=== PATIENT | female | born 1945 | race Caucasian/White ===

== ENCOUNTER 2019-06-29 10:11 | Day surgery (SDC) | payer MEDICARE, OTHER ==
[~2019-06-29 10:11] MED LIST: Cefuroxime 10 MG/ML SYRINGE EYERT SCH; Lidocaine 1% PF 2 ML SDV INJECT SCH; Pilocarpine 4% Ophth Soln 15 ML Bot EYERT SCH
[2019-06-29] MEDS: Polymyxin B/Trimethoprim 10 ML Bottle EYERT SCH ×3 (10:48→12:33)
[2019-06-29] MEDS: Brimonidine 0.2% Ophth Soln 15 ML Bottle EYERT SCH ×3 (10:57→12:33)
[2019-06-29] MEDS: Phenylephrine 2.5% Ophth Soln 2 ML Bot EYERT SCH ×5 (11:02→12:13)
[2019-06-29] MEDS: Tropicamide 1% Ophth Soln 15 ML Bottle EYERT SCH ×4 (11:08→11:59)
--- NOTE | 2019-06-29 11:37 | PCM.PREANE ---
Preanesthetic Assessment - Anesthesia/Transfusion/Family Hx Anesthesia History: Prior Anesthesia Without Reaction Family History of Anesthesia Reaction: No Transfusion History: No Prior Transfusion(s) - Review of Systems General: No Symptoms Pulmonary: No Symptoms Cardiovascular: No Symptoms Gastrointestinal: No Symptoms Neurological: Seizure (last one in February) Other: Reports: Anxiety - Physical Assessment NPO Status Date: 06/28/19 NPO Status Time: 23:45 Vital Signs: Last Vital Signs Temp 36.5 C 06/29/19 10:40 Pulse 84 06/29/19 10:40 Resp 16 06/29/19 10:40 BP 132/87 06/29/19 10:40 Pulse Ox 92 L 06/29/19 10:40 Height: 1.65 m Weight: 51.256 kg ASA Class: 2 Mental Status: Alert & Oriented x3 Airway Class: Mallampati = 1 Dentition: Reports: Caries Thyro-Mental Finger Breadths: 3 Mouth Opening Finger Breadths: 3 ROM/Head Extension: Limited/Partial (pinched nerve) Lungs: Clear to Auscultation, Normal Respiratory Effort Cardiovascular: Regular Rate, Regular Rhythm - Allergies Allergies/Adverse Reactions: Allergies Allergy/AdvReac Type Severity Reaction Status Date / Time No Known Allergies Allergy Verified 06/28/19 14:19 - Blood Blood Available: No Product(s) Available: None - Anesthesia Plan Pre-Op Medication Ordered: None - Acknowledgements Anesthesia Type Planned: MAC Pt an Appropriate Candidate for the Planned Anesthesia: Yes Alternatives and Risks of Anesthesia Discussed w Pt/Guardian: Yes Pt/Guardian Understands and Agrees with Anesthesia Plan: Yes PreAnesthesia Questionnaire - SUBSTANCE USE Smoking Status *Q: Former Smoker Tobacco Use Within Last Twelve Months: Cigarettes Second Hand Smoke Exposure: No Days Per Week of Alcohol Use: 1 Number of Drinks Per Day: 2 Total Drinks Per Week: 2 Recreational Drug Use History: No - HOME MEDS Home Medications: Home Meds Tolterodine Tartrate [Detrol LA] 4 mg PO DAILY 06/28/19 [History] Vitamin B Complex 1 tab PO DAILY 06/28/19 [History] busPIRone [Buspar] 5 mg PO BID 06/28/19 [History] levETIRAcetam [Keppra] 500 mg PO BID 06/28/19 [History] - CURRENT (IN HOUSE) MEDS Current Meds: Current Medications Brimonidine Tartrate (Brimonidine Tartrate 0.2% Ophth Soln) 0 ml EYERT ASDIRECTED GUEVARA Stop: 06/29/19 18:00 Last Admin: 06/29/19 10:57 Dose: 1 drop Cefuroxime Sodium (Zinacef) 0 mg EYERT ASDIRECTED GUEVARA Stop: 06/29/19 18:00 Lidocaine HCl (Xylocaine-Mpf 1%) 1 ml INJECT ASDIRECTED GUEVARA Stop: 06/29/19 18:00 Phenylephrine HCl (Roque-Synephrine 2.5% Ophth Soln) 0 ml EYERT ASDIRECTED GUEVARA Stop: 06/29/19 18:00 Last Admin: 06/29/19 11:27 Dose: 1 drop Pilocarpine HCl (Pilocar 4% Ophth Soln) 0 ml EYERT ASDIRECTED GUEVARA Stop: 06/29/19 18:00 Polymyxin/Trimethoprim Sulfate (Polytrim Ophth Soln) 0 ml EYERT ASDIRECTED GUEVARA Stop: 06/29/19 18:00 Last Admin: 06/29/19 10:48 Dose: 1 drop Tetracaine HCl (Tetracaine 0.5% Steri-Unit Briana) 0 ml EYERT ASDIRECTED GUEVARA Stop: 06/29/19 18:00 Tropicamide (Mydriacyl 1% Oph Soln) 0 ml EYERT ASDIRECTED GUEVARA Stop: 06/29/19 18:00 Last Admin: 06/29/19 11:22 Dose: 1 drop
[2019-06-29] MEDS: Tetracaine HCl/PF 0.5% 4 ML Bottle EYERT SCH ×2 (12:08→12:19)
--- NOTE | 2019-06-29 12:34 | PCM48HPAN ---
Post Anesthesia Note - EVALUATION WITHIN 48HRS OF ANESTHETIC Vital Signs in Normal Range: Yes Patient Participated in Evaluation: Yes Respiratory Function Stable: Yes Airway Patent: Yes Cardiovascular Function Stable: Yes Hydration Status Stable: Yes Pain Control Satisfactory: Yes Nausea and Vomiting Control Satisfactory: Yes Mental Status Recovered: Yes Vital Signs: Last Vital Signs Temp 36.5 C 06/29/19 10:40 Pulse 84 06/29/19 10:40 Resp 16 06/29/19 10:40 BP 132/87 06/29/19 10:40 Pulse Ox 92 L 06/29/19 10:40
== END 2019-06-29 12:52 | disposition home or self-care (01) ==
LOC: JD.SDS 10:11
PROVIDERS: ATTEND Ophthalmology
DX: H25.813 Combined forms of age-related cataract, bilateral (principal); H16.223 Keratoconjunctivitis sicca, not specified as Sjogren's, bilateral; H02.834 Dermatochalasis of left upper eyelid; H02.831 Dermatochalasis of right upper eyelid; H16.103 Unspecified superficial keratitis, bilateral; I10 Essential (primary) hypertension; C50.919 Malignant neoplasm of unspecified site of unspecified female breast; F41.9 Anxiety disorder, unspecified; Z87.891 Personal history of nicotine dependence; Z79.899 Other long term (current) drug therapy
CPT/HCPCS: 66984; J0697; J2001; C1780

== ENCOUNTER 2019-07-25 08:31 | Day surgery (SDC) | payer MEDICARE, OTHER ==
[~2019-07-25 08:31] MED LIST changes: +Cefuroxime 10 MG/ML SYRINGE EYELF SCH; -Cefuroxime 10 MG/ML SYRINGE EYERT SCH; +Pilocarpine 4% Ophth Soln 15 ML Bot EYELF SCH; -Pilocarpine 4% Ophth Soln 15 ML Bot EYERT SCH
[2019-07-25] MEDS: Polymyxin B/Trimethoprim 10 ML Bottle EYELF SCH ×3 (08:50→10:38)
[2019-07-25] MEDS: Brimonidine 0.2% Ophth Soln 5 ML Bottle EYELF SCH ×3 (08:55→10:38)
[2019-07-25] MEDS: Phenylephrine 2.5% Ophth Soln 2 ML Bot EYELF SCH ×5 (09:00→10:20)
[2019-07-25] MEDS: Tropicamide 1% Ophth Soln 15 ML Bottle EYELF SCH ×4 (09:05→10:04)
--- NOTE | 2019-07-25 09:39 | PCM.PREANE ---
Preanesthetic Assessment - Anesthesia/Transfusion/Family Hx Anesthesia History: Prior Anesthesia Without Reaction Family History of Anesthesia Reaction: No Transfusion History: No Prior Transfusion(s) - Review of Systems General: Weakness, Fatigue Pulmonary: Cough (Dry, Occasional. 0.5 ppd smoker. ) Cardiovascular: Lightheadedness (When standing to quickly), Other (Keeps active , does her yard work independently. ) Gastrointestinal: No Symptoms Neurological: Seizure (Takes her medication daily. Last Seizure a few months ago. Hospitalized in [place]. She believes they increased her seizure medication. ) Other: Reports: Neck Pain ("pinched nerve"), Anxiety - Physical Assessment NPO Status Date: 07/24/19 NPO Status Time: 23:45 Vital Signs: Last Vital Signs Temp 36.9 C 07/25/19 08:45 Pulse 85 07/25/19 08:45 Resp 20 07/25/19 08:45 BP 157/103 H 07/25/19 08:45 Pulse Ox 97 07/25/19 08:45 Height: 1.65 m Weight: 51.256 kg ASA Class: 3 Mental Status: Alert & Oriented x3 Dentition: Reports: Caries Thyro-Mental Finger Breadths: 3 Mouth Opening Finger Breadths: 3 ROM/Head Extension: Limited/Partial (Hurts when she fully extends her neck.) Lungs: Clear to Auscultation, Normal Respiratory Effort Cardiovascular: Regular Rate, Regular Rhythm - Allergies Allergies/Adverse Reactions: Allergies Allergy/AdvReac Type Severity Reaction Status Date / Time No Known Allergies Allergy Verified 07/24/19 08:04 - Acknowledgements Anesthesia Type Planned: MAC Pt an Appropriate Candidate for the Planned Anesthesia: Yes Alternatives and Risks of Anesthesia Discussed w Pt/Guardian: Yes Pt/Guardian Understands and Agrees with Anesthesia Plan: Yes PreAnesthesia Questionnaire - HOME MEDS Home Medications: Home Meds Tolterodine Tartrate [Detrol LA] 4 mg PO DAILY 06/28/19 [History] Vitamin B Complex 1 tab PO DAILY 06/28/19 [History] busPIRone [Buspar] 10 mg PO BID 06/28/19 [History] levETIRAcetam [Keppra] 500 mg PO BID 06/28/19 [History] - CURRENT (IN HOUSE) MEDS Current Meds: Current Medications Brimonidine Tartrate (Alphagan 0.2% Ophth Soln) 0 ml EYELF ASDIRECTED GUEVARA Stop: 07/25/19 18:00 Last Admin: 07/25/19 09:35 Dose: 1 drop Cefuroxime Sodium (Zinacef) 0 mg EYELF ASDIRECTED GUEVARA Stop: 07/25/19 18:00 Lidocaine HCl (Xylocaine-Mpf 1%) 0 ml INJECT ASDIRECTED GUEVARA Stop: 07/25/19 18:00 Phenylephrine HCl (Roque-Synephrine 2.5% Ophth Soln) 0 ml EYELF ASDIRECTED GUEVARA Stop: 07/25/19 18:00 Last Admin: 07/25/19 09:20 Dose: 1 drop Pilocarpine HCl (Pilocar 4% Ophth Soln) 0 ml EYELF ASDIRECTED GUEVARA Stop: 07/25/19 18:00 Polymyxin/Trimethoprim Sulfate (Polytrim Ophth Soln) 0 ml EYELF ASDIRECTED GUEVARA Stop: 07/25/19 18:00 Last Admin: 07/25/19 09:30 Dose: 1 drop Tetracaine HCl (Tetracaine 0.5% Steri-Unit Briana) 0 ml EYELF ASDIRECTED GUEVARA Stop: 07/25/19 18:00 Tropicamide (Mydriacyl 1% Ophth Soln) 0 ml EYELF ASDIRECTED GUEVARA Stop: 07/25/19 18:00 Last Admin: 07/25/19 09:25 Dose: 1 drop
[2019-07-25] MEDS: Tetracaine HCl/PF 0.5% 4 ML Bottle EYELF SCH ×4 (10:09→10:30)
--- NOTE | 2019-07-25 10:42 | PCM48HPAN ---
Post Anesthesia Note - EVALUATION WITHIN 48HRS OF ANESTHETIC Vital Signs in Normal Range: Yes Patient Participated in Evaluation: Yes Respiratory Function Stable: Yes Airway Patent: Yes Cardiovascular Function Stable: Yes Hydration Status Stable: Yes Pain Control Satisfactory: Yes Nausea and Vomiting Control Satisfactory: Yes Mental Status Recovered: Yes Vital Signs: Last Vital Signs Temp 36.9 C 07/25/19 08:45 Pulse 85 07/25/19 08:45 Resp 20 07/25/19 08:45 BP 157/103 H 07/25/19 08:45 Pulse Ox 97 07/25/19 08:45
--- NOTE | 2019-07-25 10:43 | PCM.PREANE ---
Preanesthetic Assessment - Anesthesia/Transfusion/Family Hx Anesthesia History: Prior Anesthesia Without Reaction Family History of Anesthesia Reaction: No Transfusion History: No Prior Transfusion(s) - Review of Systems General: Weakness, Fatigue Pulmonary: Cough (Dry and Occasional, Smoker 0.5 ppd.) Cardiovascular: Lightheadedness (When she stands up to quickly.), Other ( hypertensio) Gastrointestinal: No Symptoms Neurological: Seizure (Takes her seizure medication daily. Did have a seizure in April, was hospitalized in [place]. Increased her seizure meidcation. ) Other: Reports: Anxiety - Physical Assessment NPO Status Date: 07/24/19 NPO Status Time: 23:45 Vital Signs: Last Vital Signs Temp 36.9 C 07/25/19 08:45 Pulse 85 07/25/19 08:45 Resp 20 07/25/19 08:45 BP 157/103 H 07/25/19 08:45 Pulse Ox 97 07/25/19 08:45 Height: 1.65 m Weight: 51.256 kg ASA Class: 3 Mental Status: Alert & Oriented x3 Airway Class: Mallampati = 2 Thyro-Mental Finger Breadths: 3 Mouth Opening Finger Breadths: 3 ROM/Head Extension: Full Lungs: Clear to Auscultation, Normal Respiratory Effort Cardiovascular: Regular Rate, Regular Rhythm - Allergies Allergies/Adverse Reactions: Allergies Allergy/AdvReac Type Severity Reaction Status Date / Time No Known Allergies Allergy Verified 07/24/19 08:04 - Acknowledgements Anesthesia Type Planned: MAC Pt an Appropriate Candidate for the Planned Anesthesia: Yes Alternatives and Risks of Anesthesia Discussed w Pt/Guardian: Yes Pt/Guardian Understands and Agrees with Anesthesia Plan: Yes PreAnesthesia Questionnaire - HOME MEDS Home Medications: Home Meds Tolterodine Tartrate [Detrol LA] 4 mg PO DAILY 06/28/19 [History] Vitamin B Complex 1 tab PO DAILY 06/28/19 [History] busPIRone [Buspar] 10 mg PO BID 06/28/19 [History] levETIRAcetam [Keppra] 500 mg PO BID 06/28/19 [History] - CURRENT (IN HOUSE) MEDS Current Meds: Current Medications Brimonidine Tartrate (Alphagan 0.2% Ophth Soln) 0 ml EYELF ASDIRECTED GUEVARA Stop: 07/25/19 18:00 Last Admin: 07/25/19 08:55 Dose: 1 drop Cefuroxime Sodium (Zinacef) 0 mg EYELF ASDIRECTED GUEVARA Stop: 07/25/19 18:00 Lidocaine HCl (Xylocaine-Mpf 1%) 0 ml INJECT ASDIRECTED GUEVARA Stop: 07/25/19 18:00 Phenylephrine HCl (Roque-Synephrine 2.5% Ophth Soln) 0 ml EYELF ASDIRECTED GUEVARA Stop: 07/25/19 18:00 Last Admin: 07/25/19 09:20 Dose: 1 drop Pilocarpine HCl (Pilocar 4% Ophth Soln) 0 ml EYELF ASDIRECTED GUEVARA Stop: 07/25/19 18:00 Polymyxin/Trimethoprim Sulfate (Polytrim Ophth Soln) 0 ml EYELF ASDIRECTED GUEVARA Stop: 07/25/19 18:00 Last Admin: 07/25/19 09:30 Dose: 1 drop Tetracaine HCl (Tetracaine 0.5% Steri-Unit Briana) 0 ml EYELF ASDIRECTED GUEVARA Stop: 07/25/19 18:00 Tropicamide (Mydriacyl 1% Ophth Soln) 0 ml EYELF ASDIRECTED GUEVARA Stop: 07/25/19 18:00 Last Admin: 07/25/19 09:25 Dose: 1 drop
== END 2019-07-25 10:54 | disposition home or self-care (01) ==
LOC: JD.SDS 08:31
PROVIDERS: ATTEND Ophthalmology
DX: H25.812 Combined forms of age-related cataract, left eye (principal); H40.003 Preglaucoma, unspecified, bilateral; H02.834 Dermatochalasis of left upper eyelid; H02.831 Dermatochalasis of right upper eyelid; H52.31 Anisometropia; F41.9 Anxiety disorder, unspecified; I10 Essential (primary) hypertension; Z87.891 Personal history of nicotine dependence; Z96.1 Presence of intraocular lens; Z79.899 Other long term (current) drug therapy
CPT/HCPCS: 66984; C1780; J0697; J2001

== ENCOUNTER 2020-07-03 18:05 | Inpatient (IN) | payer MEDICARE, OTHER ==
[2020-07-03] MEDS ORDERED: Sodium Chloride 0.9% 10 ML Syringe FLUSH PRN (18:49)
--- NOTE | 2020-07-03 20:18 | EDM.PDOC ---
ED HPI GENERAL MEDICAL PROBLEM - General Chief Complaint: Behavioral/Psych Stated Complaint: [facility] Time Seen by Provider: 07/03/20 18:14 Source of Information: Reports: Patient History Limitations: Reports: No Limitations - History of Present Illness INITIAL COMMENTS - FREE TEXT/NARRATIVE: Patient is a 74-year-old female brought in by [facility] accompanied by for medical evaluation at the request of her son. He called law enforcement to do a welfare check on her today because she has not been taking care of herself. When she arrived to the ER, she smelled of feces and urine. She is quite cachectic. States she has not eaten since this morning. She is alert and oriented to person place and time. She does report frequent falls. She has some superficial abrasions on her knees which she states are because she chooses to crawl around her house as opposed to walking because that way she does not fall. She denies any fever, chills, cough, urinary symptoms. When asked who takes care of her she says "I have no". States that she thinks her brother called law enforcement for the welfare check, however had been informed that was her son who lives in [place]. Per charge nurse, her son reports that she had an episode similar to this many years back. She did have a swing bed stay during which she did well and was able to go home. He is concerned that she is not able to take care of herself at home. Headache Pain Score (Numeric/FACES): 8 - Related Data Allergies Allergy/AdvReac Type Severity Reaction Status Date / Time No Known Allergies Allergy Verified 07/04/20 00:43 Home Meds: Home Meds Tolterodine Tartrate [Detrol LA] 4 mg PO DAILY 06/28/19 [History] Vitamin B Complex 1 tab PO DAILY 06/28/19 [History] busPIRone [Buspar] 10 mg PO BID 06/28/19 [History] levETIRAcetam [Keppra] 500 mg PO BID 06/28/19 [History] Magnesium Oxide [Magnesium] 400 mg PO DAILY #5 tablet 07/04/20 [Rx] Potassium Chloride 20 meq PO DAILY #3 tablet.er 07/04/20 [Rx] Past Medical History [employer] History: Reports: Neurological History: Reports: Seizure - Past Surgical History Female Surgical History: Reports: Mastectomy, Other (See Below) Other Female Surgeries/Procedures: double mastectomy Social & Family History - Family History Family Medical History: Noncontributory - Tobacco Use Smoking Status *Q: Current Every Day Smoker Years of Tobacco use: 50 Packs/Tins Daily: 0.2 - Caffeine Use Caffeine Use: Reports: Coffee - Recreational Drug Use Recreational Drug Use: No ED ROS GENERAL - Review of Systems Review Of Systems: See Below Constitutional: Reports: Weakness. Denies: Fever, Chills HEENT: Reports: No Symptoms Respiratory: Reports: No Symptoms. Denies: Shortness of Breath, Cough Cardiovascular: Reports: No Symptoms. Denies: Chest Pain, Palpitations, Syncope Endocrine: Reports: No Symptoms GI/Abdominal: Reports: No Symptoms. Denies: Abdominal Pain, Nausea, Vomiting : Reports: No Symptoms. Denies: Dysuria Musculoskeletal: Reports: No Symptoms Skin: Reports: Other (abrasions to knees) Neurological: Reports: No Symptoms. Denies: Confusion, Dizziness, Headache Psychiatric: Reports: No Symptoms Hematologic/Lymphatic: Reports: No Symptoms Immunologic: Reports: No Symptoms ED EXAM, GENERAL - Physical Exam Exam: See Below Exam Limited By: No Limitations General Appearance: Alert, Cachetic, Other (unkept. Smells of urine and feces.) Eye Exam: Bilateral Eye: PERRL Respiratory/Chest: No Respiratory Distress, Lungs Clear, Normal Breath Sounds, No Accessory Muscle Use, Chest Non-Tender Cardiovascular: Normal Peripheral Pulses, Regular Rate, Rhythm, No Edema, No Gallop, No JVD, No Murmur, No Rub GI/Abdominal: Normal Bowel Sounds, Soft, Non-Tender, No Organomegaly, No Distention, No Abnormal Bruit, No Mass Extremities: Other (superficial abrasions to bilateral knees. No redness, swelling, or purulence noted.) Neurological: Alert, Oriented, CN II-XII Intact, Normal Cognition, No Motor/Sensory Deficits Psychiatric: Normal Affect, Normal Mood Course - Vital Signs Last Recorded V/S: Last Vital Signs Temp 97.8 F 07/04/20 15:19 Pulse 67 07/04/20 00:01 Resp 19 07/04/20 15:19 BP 89/64 L 07/04/20 15:19 Pulse Ox 97 07/04/20 15:19 - Orders/Labs/Meds Labs: Laboratory Tests 07/03/20 07/03/20 07/03/20 Range/Units 19:26 20:05 20:05 WBC 4.87 (3.98-10.04) K/mm3 RBC 3.91 L (3.98-5.22) M/mm3 Hgb 13.9 (11.2-15.7) gm/dl Hct 39.7 (34.1-44.9) % MCV 101.5 H (79.4-94.8) fl MCH 35.5 H (25.6-32.2) pg MCHC 35.0 (32.2-35.5) g/dl RDW Std Deviation 55.0 H (36.4-46.3) fL Plt Count 218 (182-369) K/mm3 MPV 10.1 (9.4-12.3) fl Neut % (Auto) 68.2 (34.0-71.1) % Lymph % (Auto) 18.7 L (19.3-51.7) % Nuckolls % (Auto) 12.5 (4.7-12.5) % Eos % (Auto) 0.2 L (0.7-5.8) Baso % (Auto) 0.2 (0.1-1.2) % Neut # (Auto) 3.32 (1.56-6.13) K/mm3 Lymph # (Auto) 0.91 L (1.18-3.74) K/mm3 Nuckolls # (Auto) 0.61 H (0.24-0.36) K/mm3 Eos # (Auto) 0.01 L (0.04-0.36) K/mm3 Baso # (Auto) 0.01 (0.01-0.08) K/mm3 Sodium 133 L (136-145) mEq/L Potassium 2.6 L (3.5-5.1) mEq/L Chloride 90 L (98-107) mEq/L Carbon Dioxide 28 (21-32) mEq/L Anion Gap 17.6 H (5-15) BUN 16 (7-18) mg/dL Creatinine 1.0 (0.55-1.02) mg/dL Est Cr Clr Drug Dosing 30.84 mL/min Estimated GFR (MDRD) 54 (>60) mL/min BUN/Creatinine Ratio 16.0 (14-18) Glucose 108 (83-115) mg/dL Calcium 10.0 (8.5-10.1) mg/dL Total Bilirubin 0.6 (0.2-1.0) mg/dL AST 54 H (15-37) U/L ALT 53 (14-59) U/L Alkaline Phosphatase 117 H (46-116) U/L Troponin I (0.00-0.056) ng/mL C-Reactive Protein 1.4 H* (<1.0) mg/dL Total Protein 7.3 (6.4-8.2) g/dl Albumin 3.6 (3.4-5.0) g/dl Globulin 3.7 gm/dL Albumin/Globulin Ratio 1.0 (1-2) Urine Color Yellow (Yellow) Urine Appearance Clear (Clear) Urine pH 6.5 (5.0-8.0) Ur Specific [place] 1.015 (1.005-1.030) Urine Protein Trace H (Negative) Urine Glucose (UA) Negative (Negative) Urine Ketones 1+ H (Negative) Urine Occult Blood Negative (Negative) Urine Nitrite Negative (Negative) Urine Bilirubin 2+ H (Negative) Urine Urobilinogen 1.0 (0.2-1.0) Ur Leukocyte Esterase Negative (Negative) Urine RBC 0-5 (0-5) /hpf Urine WBC 0-5 (0-5) /hpf Ur Squamous Epith Cells 10-20 H (0-5) /hpf Urine Bacteria Few (FEW) /hpf Urine Mucus Few (FEW) /hpf COVID-19 (CHARLES) (NEGATIVE) 07/03/20 07/03/20 Range/Units 20:05 21:23 WBC (3.98-10.04) K/mm3 RBC (3.98-5.22) M/mm3 Hgb (11.2-15.7) gm/dl Hct (34.1-44.9) % MCV (79.4-94.8) fl MCH (25.6-32.2) pg MCHC (32.2-35.5) g/dl RDW Std Deviation (36.4-46.3) fL Plt Count (182-369) K/mm3 MPV (9.4-12.3) fl Neut % (Auto) (34.0-71.1) % Lymph % (Auto) (19.3-51.7) % Nuckolls % (Auto) (4.7-12.5) % Eos % (Auto) (0.7-5.8) Baso % (Auto) (0.1-1.2) % Neut # (Auto) (1.56-6.13) K/mm3 Lymph # (Auto) (1.18-3.74) K/mm3 [place]uckolls # (Auto) (0.24-0.36) K/mm3 Eos # (Auto) (0.04-0.36) K/mm3 Baso # (Auto) (0.01-0.08) K/mm3 Sodium (136-145) mEq/L Potassium (3.5-5.1) mEq/L Chloride (98-107) mEq/L Carbon Dioxide (21-32) mEq/L Anion Gap (5-15) BUN (7-18) mg/dL Creatinine (0.55-1.02) mg/dL Est Cr Clr Drug Dosing mL/min Estimated GFR (MDRD) (>60) mL/min BUN/Creatinine Ratio (14-18) Glucose (83-115) mg/dL Calcium (8.5-10.1) mg/dL Total Bilirubin (0.2-1.0) mg/dL AST (15-37) U/L ALT (14-59) U/L Alkaline Phosphatase (46-116) U/L Troponin I < 0.017 (0.00-0.056) ng/mL C-Reactive Protein (<1.0) mg/dL Total Protein (6.4-8.2) g/dl Albumin (3.4-5.0) g/dl Globulin gm/dL Albumin/Globulin Ratio (1-2) Urine Color (Yellow) Urine Appearance (Clear) Urine pH (5.0-8.0) Ur Specific [place] (1.005-1.030) Urine Protein (Negative) Urine Glucose (UA) (Negative) Urine Ketones (Negative) Urine Occult Blood (Negative) Urine Nitrite (Negative) Urine Bilirubin (Negative) Urine Urobilinogen (0.2-1.0) Ur Leukocyte Esterase (Negative) Urine RBC (0-5) /hpf Urine WBC (0-5) /hpf Ur Squamous Epith Cells (0-5) /hpf Urine Bacteria (FEW) /hpf Urine Mucus (FEW) /hpf COVID-19 (CHARLES) Negative (NEGATIVE) Meds: Medications Discontinued Medications Generic Name Dose Route Start Last Admin Trade Name Andra PRN Reason Stop Dose Admin Acetaminophen 650 mg 07/03/20 21:56 07/03/20 23:16 Tylenol PO 650 mg Q4H PRN Administration Pain (Mild 1-3)/fever Enoxaparin Sodium 40 mg 07/04/20 09:00 07/04/20 08:06 Lovenox SUBCUT 40 mg DAILY GUEVARA Administration Sodium Chloride 1,000 mls @ 100 mls/hr 07/03/20 21:15 07/04/20 06:33 Normal Saline IV 100 mls/hr ASDIRECTED GUEVARA Administration Potassium Chloride 10 meq/ 100 mls @ 100 mls/hr 07/03/20 21:15 07/04/20 01:29 Premix IV 07/04/20 01:14 100 mls/hr Q1H GUEVARA Administration Magnesium Sulfate 4 gm/ Premix 50 mls @ 12.5 mls/hr 07/04/20 09:03 07/04/20 09:44 IV 07/04/20 13:02 12.5 mls/hr ONETIME ONE Administration Miscellaneous Information 0 ea 07/05/20 09:45 Remove Patch TRDERM Q24H GUEVARA Nicotine 14 mg 07/04/20 09:45 07/04/20 10:29 Habitrol TRDERM 14 mg DAILY GUEVARA Administration Potassium Chloride 40 meq 07/03/20 21:09 07/03/20 21:18 Klor-Con M20 PO 07/03/20 21:10 40 meq ONETIME ONE Administration Sodium Chloride 10 ml 07/03/20 18:49 07/03/20 20:22 Saline Flush FLUSH 10 ml ASDIRECTED PRN Administration Keep Vein Open - Re-Assessments/Exams Free Text/Narrative Re-Assessment/Exam: Hematology was significant for sodium slightly low at 133, potassium low at 2.6, chloride 90, anion gap 17.6, CRP 1.4. Chest x-ray showed emphysematous changes but no other notable abnormalities. Urinalysis was negative for infection. EKG showed no acute abnormalities. Case discussed with Dr. Flood. Patient will be admitted to the medical surgical floor for hypokalemia, and weakness. I did call and speak with her son Jovanny to update on this. He wanted to make sure that we are aware that she is a fairly heavy smoker. I did update Dr. Flood of this that she will likely need a nicotine patch. Patient ate 1 s andwich while in the ER and asked for another, so she is quite hungry. She did not seem overly impressed about being admitted, however she did agree. Ordered normal saline at 100 mils per hour, potassium chloride 40 mEq by mouth, and KCl 10 mEq IV x4 doses. Departure - Departure Time of Disposition: 21:10 Disposition: DC/Tfer to Acute Hospital 02 Condition: Good Clinical Impression: Hypokalemia, Weakness - Discharge Information Sepsis Event Note (ED) - Evaluation Sepsis Screening Result: No Definite Risk
--- NOTE | 2020-07-03 20:53 | CT ---
Head CT Technique: Multiple axial sections through the brain were obtained. Intravenous contrast was not utilized. Comparison: Prior MRI brain of 01/19/14 is available. Findings: Ventricles along with basal cisterns and sulci with convexities are moderately prominent. Mild areas of diminished density is scattered within the subcortical and periventricular white matter most likely due to small vessel ischemic demyelination change. No other abnormal parenchymal densities are seen. No evidence of intracranial hemorrhage. No midline shift or mass-effect is seen. Atherosclerotic calcification is seen within the carotid siphon and within portions of the vertebral vessels. Bone window settings were reviewed. Visualized paranasal sinuses and mastoid sinuses show nothing acute. No acute calvarial finding is appreciated. Impression: 1. Senescent change as noted above. 2. Nothing acute is appreciated on noncontrast head CT exam. Diagnostic code #2 This report was dictated in MDT
--- NOTE | 2020-07-03 20:54 | CR ---
Chest: 2 views of the chest were obtained. Comparison: Prior chest x-ray of 04/11/14. Heart size and mediastinum are within normal limits. Lungs are hyperinflated suggesting emphysematous change. No acute parenchymal change is seen. Surgical clips are seen from prior left axillary lymph node dissection. Previous healed rib fracture is noted within the right fifth rib. This is an interval change from previous exam. Disc calcification is noted within the lower thoracic spine which is stable from previous exam. Impression: 1. Emphysematous change. 2. Other findings as noted above. 3. Nothing acute is seen. Diagnostic code #2 This report was dictated in MDT
[2020-07-03] MEDS ORDERED: Potassium Chloride 20 MEQ Tab.ER PO ONE (21:09)
[2020-07-03] MEDS: Sodium Chloride 0.9% 1,000 ML IV SCH (21:17)
[2020-07-03] MEDS: Potassium Chloride 10 MEQ in Premix Bag 1 BAG IV SCH ×2 (21:17→23:14)
[2020-07-03] MEDS ORDERED: Acetaminophen 325 MG Tab PO PRN (21:56)
[2020-07-04] MEDS: Potassium Chloride 10 MEQ in Premix Bag 1 BAG IV SCH ×2 (00:22→01:29)
[2020-07-04] MEDS: Sodium Chloride 0.9% 1,000 ML IV SCH (06:33)
--- NOTE | 2020-07-04 07:10 | PCM.HP.2 ---
H&P History of Present Illness - General Date of Service: 07/04/20 Admit Problem/Dx: Admission Diagnosis/Problem Admission Diagnosis/Problem Hypokalemia Source of Information: Patient, Provider, RN, RN Notes Reviewed History Limitations: Reports: No Limitations - History of Present Illness Initial Comments - Free Text/Narative: This is a 74yo female who presented to our ED on 07/03/2020 via [facility] accompanied by the medication technician after a welfare check. Per the ED report the son called law enforcement because he does not feel that the patient has been taking care of herself. She is noted in the ED to smell of urine and feces and very cachectic. She reports that she has not eaten since the morning and she has been having frequent falls. She is alert and oriented to person time and place but she is noted to have abrasions on her knees. When asked about th is she reports that she crawls around the house because she is worried that she will fall. She denies any fever, chills, cough, urinary symptoms, or other infectious symptoms. Per the patient's son she had a episode several years ago like this and was admitted for swing bed stay. She was discharged home at that time. Son is worried that the patient is unable to care for herself now at home. In the ED CBC was grossly normal. CMP noted a mildly low sodium at 133. Potassium was 2.6. Anion gap is high at 17.6. Creatinine was 1.0. BUN was 16. GFR was 54. P was 1.4. Troponin and COVID-19 were negative. She is given 40 mEq of potassium chloride p.o. Twelve-lead EKG is obtained per the ED note and shows no acute changes. Head CT is obtained showing senescent change but nothing acute. Chest x-ray is obtained showing emphysematous change but nothing acute. She has a seizure history and is on Keppra. She has a history of breast cancer s/p mastectomy. She is a current smoker. She is subsequently admitted to the ICU as a medical floor overflow, med/surg status with telemetry. Headache Pain Score (Numeric/FACES): 8 - Related Data Allergies/Adverse Reactions: Allergies Allergy/AdvReac Type Severity Reaction Status Date / Time No Known Allergies Allergy Verified 07/04/20 00:43 Home Medications: Home Meds Tolterodine Tartrate [Detrol LA] 4 mg PO DAILY 06/28/19 [History] Vitamin B Complex 1 tab PO DAILY 06/28/19 [History] busPIRone [Buspar] 10 mg PO BID 06/28/19 [History] levETIRAcetam [Keppra] 500 mg PO BID 06/28/19 [History] Magnesium Oxide [Magnesium] 400 mg PO DAILY #5 tablet 07/04/20 [Rx] Potassium Chloride 20 meq PO DAILY #3 tablet.er 07/04/20 [Rx] Past Medical History HEENT History: Reports: Cataract Genitourinary History: Reports: Urinary Incontinence [employer] History: Reports: Musculoskeletal History: Reports: Other (See Below) Other Musculoskeletal History: bunions removal Neurological History: Reports: Seizure Psychiatric History: Reports: Anxiety Oncologic (Cancer) History: Reports: Breast - Past Surgical History HEENT Surgical History: Reports: Cataract Surgery Female Surgical History: Reports: Hysterectomy, Mastectomy, Other (See Below) Other Female Surgeries/Procedures: double mastectomy Musculoskeletal Surgical History: Reports: Other (See Below) Other Musculoskeletal Surgeries/Procedures:: bilateral bunions surgery Oncologic Surgical History: Reports: Mastectomy Social & Family History - Family History Family Medical History: Noncontributory - Tobacco Use Smoking Status *Q: Current Every Day Smoker Years of Tobacco use: 55 Packs/Tins Daily: 0.2 Used Tobacco, but Quit: No Tobacco Use Comment: pt reported she started smoking at the age of 16 Second Hand Smoke Exposure: No - Caffeine Use Caffeine Use: Reports: Coffee - Recreational Drug Use Recreational Drug Use: No H&P Review of Systems - Review of Systems: Review Of Systems: See Below General: Reports: No Symptoms. Denies: Fever, Chills, Malaise, Weakness (Denies), Fatigue HEENT: Reports: No Symptoms. Denies: Headaches, Sore Throat Pulmonary: Reports: No Symptoms. Denies: Shortness of Breath, Wheezing, Pleuritic Chest Pain, Cough, Sputum Cardiovascular: Reports: No Symptoms. Denies: Chest Pain, Palpitations, Dyspnea on Exertion, Edema Gastrointestinal: Reports: No Symptoms. Denies: Abdominal Pain, Constipation, Diarrhea, Nausea, Vomiting Genitourinary: Reports: Incontinence. Denies: Pain Musculoskeletal: Reports: No Symptoms Skin: Reports: No Symptoms. Denies: Cyanosis Psychiatric: Reports: No Symptoms. Denies: Confusion Neurological: Reports: No Symptoms. Denies: Numbness, Tingling, Difficulty Walking (Denies ), Gait Disturbance Hematologic/Lymphatic: Reports: No Symptoms Immunologic: Reports: No Symptoms Exam - Exam Exam: See Below - Vital Signs Vital Signs: Last Vital Signs Temp 97.3 F 07/04/20 05:45 Pulse 67 07/04/20 00:01 Resp 16 07/04/20 05:45 BP 80/64 L 07/04/20 05:45 Pulse Ox 95 07/04/20 05:45 Weight: 96 lb 12.8 oz - Exam Quality Assessment: DVT Prophylaxis. No: Supplemental Oxygen General: Alert, Oriented, Cooperative (Reports she does not want to be here but is cooperative ), Other (Cachectic). No: Mild Distress HEENT: Conjunctiva Clear, EACs Clear, Posterior Pharynx Clear Neck: Supple, Trachea Midline Lungs: Clear to Auscultation, Normal Respiratory Effort, Decreased Breath Sounds Cardiovascular: Regular Rate, Regular Rhythm GI/Abdominal Exam: Normal Bowel Sounds, Soft, Non-Tender, No Distention (Female) Exam: Deferred Rectal (Female) Exam: Deferred Back Exam: Normal Inspection, Full Range of Motion Extremities: Normal Range of Motion, Non-Tender, No Pedal Edema, Other (Scattered bruising on knees and legs. ) Skin: Warm, Dry, Intact Neurological: Cranial Nerves Intact (Grossly) Neuro Extensive - Mental Status: Alert, Oriented x3. No: Disorientation to Person, Disorientation to Place, Disorientation to Time, Inattentive Psychiatric: Alert - Patient Data Lab Results Last 24 hrs: Laboratory Results - last 24 hr 07/03/20 07/03/20 07/03/20 Range/Units 19:26 20:05 20:05 WBC 4.87 (3.98-10.04) K/mm3 RBC 3.91 L (3.98-5.22) M/mm3 Hgb 13.9 (11.2-15.7) gm/dl Hct 39.7 (34.1-44.9) % MCV 101.5 H (79.4-94.8) fl MCH 35.5 H (25.6-32.2) pg MCHC 35.0 (32.2-35.5) g/dl RDW Std Deviation 55.0 H (36.4-46.3) fL Plt Count 218 (182-369) K/mm3 MPV 10.1 (9.4-12.3) fl Neut % (Auto) 68.2 (34.0-71.1) % Lymph % (Auto) 18.7 L (19.3-51.7) % Mccone % (Auto) 12.5 (4.7-12.5) % Eos % (Auto) 0.2 L (0.7-5.8) Baso % (Auto) 0.2 (0.1-1.2) % Neut # (Auto) 3.32 (1.56-6.13) K/mm3 Lymph # (Auto) 0.91 L (1.18-3.74) K/mm3 Mccone # (Auto) 0.61 H (0.24-0.36) K/mm3 Eos # (Auto) 0.01 L (0.04-0.36) K/mm3 Baso # (Auto) 0.01 (0.01-0.08) K/mm3 Sodium 133 L (136-145) mEq/L Potassium 2.6 L (3.5-5.1) mEq/L Chloride 90 L (98-107) mEq/L Carbon Dioxide 28 (21-32) mEq/L Anion Gap 17.6 H (5-15) BUN 16 (7-18) mg/dL Creatinine 1.0 (0.55-1.02) mg/dL Est Cr Clr Drug Dosing 30.84 mL/min Estimated GFR (MDRD) 54 (>60) mL/min BUN/Creatinine Ratio 16.0 (14-18) Glucose 108 (83-115) mg/dL Calcium 10.0 (8.5-10.1) mg/dL Magnesium (1.8-2.4) mg/dl Total Bilirubin 0.6 (0.2-1.0) mg/dL AST 54 H (15-37) U/L ALT 53 (14-59) U/L Alkaline Phosphatase 117 H (46-116) U/L Troponin I (0.00-0.056) ng/mL C-Reactive Protein 1.4 H* (<1.0) mg/dL Total Protein 7.3 (6.4-8.2) g/dl Albumin 3.6 (3.4-5.0) g/dl Globulin 3.7 gm/dL Albumin/Globulin Ratio 1.0 (1-2) Urine Color Yellow (Yellow) Urine Appearance Clear (Clear) Urine pH 6.5 (5.0-8.0) Ur Specific [place] 1.015 (1.005-1.030) Urine Protein Trace H (Negative) Urine Glucose (UA) Negative (Negative) Urine Ketones 1+ H (Negative) Urine Occult Blood Negative (Negative) Urine Nitrite Negative (Negative) Urine Bilirubin 2+ H (Negative) Urine Urobilinogen 1.0 (0.2-1.0) Ur Leukocyte Esterase Negative (Negative) Urine RBC 0-5 (0-5) /hpf Urine WBC 0-5 (0-5) /hpf Ur Squamous Epith Cells 10-20 H (0-5) /hpf Urine Bacteria Few (FEW) /hpf Urine Mucus Few (FEW) /hpf COVID-19 (CHARLES) (NEGATIVE) 07/03/20 07/03/20 07/04/20 Range/Units 20:05 21:23 06:00 WBC 4.75 (3.98-10.04) K/mm3 RBC 3.53 L (3.98-5.22) M/mm3 Hgb 12.4 D (11.2-15.7) gm/dl Hct 36.6 (34.1-44.9) % MCV 103.7 H (79.4-94.8) fl MCH 35.1 H (25.6-32.2) pg MCHC 33.9 (32.2-35.5) g/dl RDW Std Deviation 56.4 H (36.4-46.3) fL Plt Count 205 (182-369) K/mm3 MPV 10.6 (9.4-12.3) fl Neut % (Auto) 45.5 (34.0-71.1) % Lymph % (Auto) 35.8 (19.3-51.7) % Mccone % (Auto) 15.6 H (4.7-12.5) % Eos % (Auto) 2.5 (0.7-5.8) Baso % (Auto) 0.4 (0.1-1.2) % Neut # (Auto) 2.16 (1.56-6.13) K/mm3 Lymph # (Auto) 1.70 (1.18-3.74) K/mm3 Mccone # (Auto) 0.74 H (0.24-0.36) K/mm3 Eos # (Auto) 0.12 (0.04-0.36) K/mm3 Baso # (Auto) 0.02 (0.01-0.08) K/mm3 Sodium (136-145) mEq/L Potassium (3.5-5.1) mEq/L Chloride (98-107) mEq/L Carbon Dioxide (21-32) mEq/L Anion Gap (5-15) BUN (7-18) mg/dL Creatinine (0.55-1.02) mg/dL Est Cr Clr Drug Dosing mL/min Estimated GFR (MDRD) (>60) mL/min BUN/Creatinine Ratio (14-18) Glucose (83-115) mg/dL Calcium (8.5-10.1) mg/dL Magnesium (1.8-2.4) mg/dl Total Bilirubin (0.2-1.0) mg/dL AST (15-37) U/L ALT (14-59) U/L Alkaline Phosphatase (46-116) U/L Troponin I < 0.017 (0.00-0.056) ng/mL C-Reactive Protein (<1.0) mg/dL Total Protein (6.4-8.2) g/dl Albumin (3.4-5.0) g/dl Globulin gm/dL Albumin/Globulin Ratio (1-2) Urine Color (Yellow) Urine Appearance (Clear) Urine pH (5.0-8.0) Ur Specific [place] (1.005-1.030) Urine Protein (Negative) Urine Glucose (UA) (Negative) Urine Ketones (Negative) Urine Occult Blood (Negative) Urine Nitrite (Negative) Urine Bilirubin (Negative) Urine Urobilinogen (0.2-1.0) Ur Leukocyte Esterase (Negative) Urine RBC (0-5) /hpf Urine WBC (0-5) /hpf Ur Squamous Epith Cells (0-5) /hpf Urine Bacteria (FEW) /hpf Urine Mucus (FEW) /hpf COVID-19 (CHARLES) Negative (NEGATIVE) 07/04/20 Range/Units 06:00 WBC (3.98-10.04) K/mm3 RBC (3.98-5.22) M/mm3 Hgb (11.2-15.7) gm/dl Hct (34.1-44.9) % MCV (79.4-94.8) fl MCH (25.6-32.2) pg MCHC (32.2-35.5) g/dl RDW Std Deviation (36.4-46.3) fL Plt Count (182-369) K/mm3 MPV (9.4-12.3) fl Neut % (Auto) (34.0-71.1) % Lymph % (Auto) (19.3-51.7) % Mccone % (Auto) (4.7-12.5) % Eos % (Auto) (0.7-5.8) Baso % (Auto) (0.1-1.2) % Neut # (Auto) (1.56-6.13) K/mm3 Lymph # (Auto) (1.18-3.74) K/mm3 Mccone # (Auto) (0.24-0.36) K/mm3 Eos # (Auto) (0.04-0.36) K/mm3 Baso # (Auto) (0.01-0.08) K/mm3 Sodium 137 (136-145) mEq/L Potassium 3.8 (3.5-5.1) mEq/L Chloride 99 (98-107) mEq/L Carbon Dioxide 30 (21-32) mEq/L Anion Gap 11.8 (5-15) BUN 16 (7-18) mg/dL Creatinine 1.0 (0.55-1.02) mg/dL Est Cr Clr Drug Dosing 33.17 mL/min Estimated GFR (MDRD) 54 (>60) mL/min BUN/Creatinine Ratio 16.0 (14-18) Glucose 101 (83-115) mg/dL Calcium 9.2 (8.5-10.1) mg/dL Magnesium 1.4 L (1.8-2.4) mg/dl Total Bilirubin 0.4 (0.2-1.0) mg/dL AST 47 H (15-37) U/L ALT 46 (14-59) U/L Alkaline Phosphatase 108 (46-116) U/L Troponin I (0.00-0.056) ng/mL C-Reactive Protein (<1.0) mg/dL Total Protein 6.4 (6.4-8.2) g/dl Albumin 3.1 L (3.4-5.0) g/dl Globulin 3.3 gm/dL Albumin/Globulin Ratio 0.9 L (1-2) Urine Color (Yellow) Urine Appearance (Clear) Urine pH (5.0-8.0) Ur Specific [place] (1.005-1.030) Urine Protein (Negative) Urine Glucose (UA) (Negative) Urine Ketones (Negative) Urine Occult Blood (Negative) Urine Nitrite (Negative) Urine Bilirubin (Negative) Urine Urobilinogen (0.2-1.0) Ur Leukocyte Esterase (Negative) Urine RBC (0-5) /hpf Urine WBC (0-5) /hpf Ur Squamous Epith Cells (0-5) /hpf Urine Bacteria (FEW) /hpf Urine Mucus (FEW) /hpf COVID-19 (CHARLES) (NEGATIVE) Result Diagrams: 07/04/20 06:00 07/04/20 06:00 Sepsis Event Note - Evaluation Sepsis Screening Result: No Definite Risk - Focused Exam Vital Signs: Vital Signs Temp Pulse Resp BP Pulse Ox Pulse Ox 07/04/20 05:45 97.3 F 16 80/64 L 95 07/04/20 02:00 17 92/63 95 07/04/20 00:01 67 17 95 07/03/20 22:30 96.9 F 18 90/64 97 97 - Problem List (1) Current smoker SNOMED Code(s): 90003650 ICD Code: F17.200 - NICOTINE DEPENDENCE, UNSPECIFIED, UNCOMPLICATED Status: Chronic Priority: Medium Current Visit: Yes (2) History of seizure SNOMED Code(s): 021749952 ICD Code: Z87.898 - PERSONAL HISTORY OF OTHER SPECIFIED CONDITIONS Status: Chronic Priority: Medium Current Visit: No (3) Hospital admission due to social situation SNOMED Code(s): 264566451 ICD Code: Z60.9 - PROBLEM RELATED TO SOCIAL ENVIRONMENT, UNSPECIFIED Status: Acute Priority: High Current Visit: Yes (4) Failure to thrive SNOMED Code(s): 20638757 ICD Code: UOH3668 - Status: Acute Priority: High Current Visit: Yes Qualifiers: Failure to thrive age range: in adult Qualified Code(s): R62.7 - Adult failure to thrive (5) Frequent falls SNOMED Code(s): 794840378 ICD Code: R29.6 - REPEATED FALLS Status: Acute Priority: High Current Visit: Yes (6) Hypokalemia SNOMED Code(s): 61187600 ICD Code: E87.6 - HYPOKALEMIA Status: Resolved Priority: High Current Visit: Yes (7) Weakness SNOMED Code(s): 75417915 ICD Code: R53.1 - WEAKNESS Status: Resolved Priority: High Current Visit: Yes (8) Hypomagnesemia SNOMED Code(s): 010064263 ICD Code: E83.42 - HYPOMAGNESEMIA Status: Acute Priority: High Current Visit: Yes (9) History of breast cancer SNOMED Code(s): 286934513 ICD Code: Z85.3 - PERSONAL HISTORY OF MALIGNANT NEOPLASM OF BREAST Status: Chronic Priority: Low Current Visit: No (10) History of mastectomy SNOMED Code(s): 292324429, 058880535 ICD Code: Z90.10 - ACQUIRED ABSENCE OF UNSPECIFIED BREAST AND NIPPLE Status: Acute Priority: Low Current Visit: No Qualifiers: Laterality: unspecified laterality Qualified Code(s): Z90.10 - Acquired absence of unspecified breast and nipple Problem List Initiated/Reviewed/Updated: Yes Orders Last 24hrs: Active Orders 24 hr Category Date Time Status Patient Status [ADT] Routine ADT 07/03/20 21:10 Active Oxygen Therapy [RC] PRN Care 07/03/20 21:56 Active Peripheral IV Care [RC] Q2HR Care 07/03/20 18:52 Active VTE/DVT Education [RC] Care 07/03/20 21:56 Active Vital Signs [RC] Q4H Care 07/03/20 21:56 Active Regular Diet [DIET] Diet 07/04/20 Breakfast Active CBC WITH AUTO DIFF [HEME] AM Lab 07/04/20 06:00 Results Acetaminophen [TylenoL] Med 07/03/20 21:56 Active 650 mg PO Q4H PRN Enoxaparin [Lovenox] Med 07/04/20 09:00 Active 40 mg SUBCUT DAILY Sodium Chloride 0.9% [Normal Saline] 1,000 ml Med 07/03/20 21:15 Active IV ASDIRECTED Sodium Chloride 0.9% [Saline Flush] Med 07/03/20 18:49 Active 10 ml FLUSH ASDIRECTED PRN Peripheral IV Insertion Adult [OM.PC] Stat Oth 07/03/20 18:44 Ordered Medication Orders Acetaminophen (Tylenol) 650 mg PO Q4H PRN PRN Reason: Pain (Mild 1-3)/fever Last Admin: 07/03/20 23:16 Dose: 650 mg Documented by: NISHA Enoxaparin Sodium (Lovenox) 40 mg SUBCUT DAILY [facility] Sodium Chloride (Normal Saline) 1,000 mls @ 100 mls/hr IV ASDIRECTED GUEVARA Last Admin: 07/04/20 06:33 Dose: 100 mls/hr Documented by: Infusion: 07/04/20 06:33 Dose: 100 mls/hr Documented by: Admin: 07/03/20 21:17 Dose: 100 mls/hr Documented by: BLANCHE Sodium Chloride (Saline Flush) 10 ml FLUSH ASDIRECTED PRN PRN Reason: Keep Vein Open Last Admin: 07/03/20 20:22 Dose: 10 ml Documented by: BLANCHE Assessment/Plan Comment:: Assessment on admission: Hospital admission due to social situation Failure to thrive Frequent falls Hypokalemia Weakness Hypomagnesemia Incontinence Anxiety * 74 yo female brought to ED via [facility] due to concerns over living situation * Per who accompanied ambulance house was very messy with feces and urine * Patient reports she was crawling around house to get where she needed to go * CT scan and CXR in ED negative for anything acute * Sodium 133 in ED; Potassium 2.6; Anion gap 17.6 * Given 40 meq potassium in ED * IV fluids started in ED * Reports history of both urinary and fecal incontinence * States she has been requesting to see urology for sometimes but PCP says there is nothing they would do differently. * On home Detrol and Buspar * Magnesium 1.4 Current smoker * Reports approximately 3 cigarette per day smoker * Believes she will be a lifelong smoker History of seizure * Reports single episode of seizure several years ago * Reports she has not been able to drive since then * On home Keppra * History of breast cancer History of mastectomy * Reports history of breast cancer several years ago with mastectomy * Denies any current concerns Plan: * Admit to hospital floor med/surg status on telemetry due to hypokalemia * IV fluids as ordered * Continue home Keppra, Detrol, and Buspar once dosing is confirmed * PT/OT consult * Dietary consult * Spiritual care consult * CM/SW consult * Supplement magnesium Code status: DNR/DNI - confirmed with patient PCP: Dr. Curtis DVT prophylaxis: Sarina GI prophylaxis: Not indicated Social: Live alone but has brother and neighbor who look after her. Per brother house is full of feces and urine. She does have an strange son who lives in [place] that she has not spoken with for several years. She has a son who is a power of criminal defense attorney who lives in [place]. Medications are sent from [facility]. Disposition: Patient will be admitted to the medical floor on telemetry (ICU medical overflow) for management of her hypokalemia, hypomagnesemia, failure to thrive, and possible need for placement. - Mortality Measure Prognosis:: Good
[2020-07-04] MEDS ORDERED: Enoxaparin 40 MG/0.4 ML Syringe SUBCUT SCH (09:00)
[2020-07-04] MEDS ORDERED: Magnesium Sulfate/Water 4 GM in Premix Bag 1 BAG IV ONE (09:03)
[2020-07-04] MEDS ORDERED: Nicotine 14 MG/24 Hr Patch TRDERM SCH (09:45)
--- NOTE | 2020-07-04 16:44 | PCM.DCSUM1 ---
Discharge Summary - Hospital Course HPI Initial Comments: This is a 74yo female who presented to our ED on 07/03/2020 via [facility] accompanied by the after a welfare check. Per the ED report the son called law enforcement because he does not feel that the patient has been taking care of herself. She is noted in the ED to smell of urine and feces and very cachectic. She reports that she has not eaten since the morning and she has been having frequent falls. She is alert and oriented to person time and place but she is noted to have abrasions on her knees. When asked about this she reports that she crawls around the house because she is worried that she will fall. She denies any fever, chills, cough, urinary symptoms, or other infectious symptoms. Per the patient's son she had a episode several years ago like this and was admitted for swing bed stay. She was discharged home at that time. Son is worried that the patient is unable to care for herself now at home. In the ED CBC was grossly normal. CMP noted a mildly low sodium at 133. Potassium was 2.6. Anion gap is high at 17.6. Creatinine was 1.0. BUN was 16. GFR was 54. P was 1.4. Troponin and COVID-19 were negative. She is given 40 mEq of potassium chloride p.o. Twelve-lead EKG is obtained per the ED note and shows no acute changes. Head CT is obtained showing senescent change but nothing acute. Chest x-ray is obtained showing emphysematous change but nothing acute. She has a seizure history and is on Keppra. She has a history of breast cancer s/p mastectomy. She is a current smoker. She is subsequently admitted to the ICU as a medical floor overflow, med/surg status with telemetry. Diagnosis: Stroke: No - Discharge Data Discharge Date: 07/04/20 (Admit date: 07/03/20) Discharge Disposition: Home, Self-Care 01 Condition: Good - Referral to Home Health Primary Care Physician: PCP Not In Area - Discharge Diagnosis/Problem(s) (1) Current smoker SNOMED Code(s): 28800039 ICD Code: F17.200 - NICOTINE DEPENDENCE, UNSPECIFIED, UNCOMPLICATED Status: Chronic Priority: Medium Current Visit: Yes (2) History of seizure SNOMED Code(s): 481626047 ICD Code: Z87.898 - PERSONAL HISTORY OF OTHER SPECIFIED CONDITIONS Status: Chronic Priority: Medium Current Visit: No (3) Hospital admission due to social situation SNOMED Code(s): 547715862 ICD Code: Z60.9 - PROBLEM RELATED TO SOCIAL ENVIRONMENT, UNSPECIFIED Status: Acute Priority: High Current Visit: Yes (4) Failure to thrive SNOMED Code(s): 24452144 ICD Code: AGA1795 - Status: Acute Priority: High Current Visit: Yes Qualifiers: Failure to thrive age range: in adult Qualified Code(s): R62.7 - Adult failure to thrive (5) Frequent falls SNOMED Code(s): 397739154 ICD Code: R29.6 - REPEATED FALLS Status: Acute Priority: High Current Visit: Yes (6) Hypokalemia SNOMED Code(s): 72678264 ICD Code: E87.6 - HYPOKALEMIA Status: Resolved Priority: High Current Visit: Yes (7) Weakness SNOMED Code(s): 23970619 ICD Code: R53.1 - WEAKNESS Status: Resolved Priority: High Current Visit: Yes (8) Hypomagnesemia SNOMED Code(s): 658331999 ICD Code: E83.42 - HYPOMAGNESEMIA Status: Acute Priority: High Current Visit: Yes (9) History of breast cancer SNOMED Code(s): 325544594 ICD Code: Z85.3 - PERSONAL HISTORY OF MALIGNANT NEOPLASM OF BREAST Status: Chronic Priority: Low Current Visit: No (10) History of mastectomy SNOMED Code(s): 557837073, 119525074 ICD Code: Z90.10 - ACQUIRED ABSENCE OF UNSPECIFIED BREAST AND NIPPLE Status: Acute Priority: Low Current Visit: No Qualifiers: Laterality: unspecified laterality Qualified Code(s): Z90.10 - Acquired absence of unspecified breast and nipple - Patient Summary/Data Consults: Consultations 07/04/20 07:41 OT Evaluation and Treatment [CONS] Routine PT Evaluation and Treatment [CONS] Routine 07/04/20 09:39 Consult to Case Management/Model Maker Firearms [CONS] Routine 07/04/20 09:40 Consult to Day Worker [CONS] Routine Consult to Spiritual Care [CONS] Routine 07/04/20 09:53 Consult to Speech Language Pathology [SURVEY ENGINEER Evaluation and Treatment] [CONS] Routine Labs Pending at D/C: None Recommended Follow-up Testing/Procedures: Follow-up with PCP within 7-10 days of discharge, sooner if needed. Hospital Course: Almaz was admitted to the hospital floor after being transported to the ED via [facility] due to failure to thrive and her home living conditions. Per EMS and the shipping clerk/admin report the patient is living in a very dirty house with feces and urine stained items. Patient did admit the ED provider that she is primarily crawling around her house as she is afraid of falling. In the ED sodium was low at 133. Potassium low at 2.6. Her anion gap was elevated at 17.6. Otherwise things look good. She was given 40 mill equivalent p.o. potassium and IV fluids which increased her sodium to 137 and her potassium 3.8. Magnesium was checked on the floor and was found to be 1.4. This was supplemented. Patient was admitted to the ICU as our medical floor was on diversion, however she remained MedSurg status with telemetry. On the floor PT did evaluate the patient and recommended SNF placement. Patient was adamantly against this idea. Social work and case management did discuss home health services and options for assistance at home however patient refused all. Dietitian did see patient and noted that she is malnourished and would benefit from protein supplementation. Patient was given pictures of good options such as high-protein boost. Patient states that she does like to eat however she does not like to cook or make food. She therefore reported that she would eat things that were given to her but did not go out of her way to make things. She reported that she does eat generally at least one good meal a day. She reported that her groceries primarily come from [facility] and oftentimes they do not have a full selection. While on the floor patient's brother did call to discuss patient's discharge with nursing. He is very concerned as he has been cleaning her house and has noted feces and urine throughout the patient's bed and on clothing. Per the patient she does try to stay hydrated and drinks 2 Gatorade's per day. She reports that this does then lead to urinary incontinence. She also said that it is not uncommon for her to have stool incontinence. Significant discussion was had with the patient and she continued to feel that she was doing fine at home. Patient was alert and orientated to person, place, time, and event. She did open up about her family history and her who had passed several years ago. Because of this conversation patient was deemed orientated and therefore able to make her own healthcare decisions. Speech-language pathology did evaluate the patient and noted a significant cognitive deficit verging on the edge of dementia per their report. After obtaining permission from the patient patient's brother was contacted who was quite upset that we are unable to place the patient in a chcf against her will. He notes that her house was very dirty and he spent several hours they are cleaning, including cleaning up human feces. As discussed with him patient does have a rights in until she is deemed incompetent we cannot infringe on these rights. Patient's son and mason was contacted and agreed that although he is the power of title attorney because the patient is alert and orientated she continues to have rights. He agreed that she has been declining and would likely benefit from SNF placement or at the very least assistance in the home. He is not surprised that she is refusing all services. He reports that patient's brother and the neighbor help in taking care of her but that it has been a lot lately. He reports that he has offered many times for her to come move up with him or least to his area and she has refused to leave [facility]. He is concerned because he does not know what more they can do and he would like to know what advice we have should she continue to live in the situation. He was advised to contact the local high school social studies teacher office in [place]. He also was advised to discuss the situation with the patient's primary care provider. He asked about calling the ambulance in the future and he was advised that obviously should she have a medical condition they should do that, although there is no guarantee that she will ultimately be admitted to the hospital if she does not need to be. He is aware that he Adult Protective Services report was filed on his mother and he was advised that he may contact them as well to give his account of the situation. He asked about establishing guardianship and was advised that this would be questions best answered by the patient's local [facility] high school social studies teacher office or states title attorney's office. Ultimately the patient reported that she would like to go home. From a medical standpoint she is stable has her electrolytes have been replaced and there is no signs of active infection or other concerns. There have been no abnormalities noted on telemetry. Multiple attempts were made to obtain assistance for the patient and she continued to refuse. She was ultimately discharged. Prescrip tion medications were sent to [facility] pharmacy for potassium and magnesium supplementation after discharge. She was instructed to follow-up with her primary care provider within 7 to 10 days of discharge. Recommend recheck CBC, CMP, magnesium at that appointment. Patient is a 3 cigarette a day smoker, per her report. She was offered patches on discharge and refused. She was offered practical counseling and given resources such as [facility] and her primary care provider should she change her mind. She reports she will likely be a lifelong smoker. She was advised to follow-up with her primary care provider or return to the emergency department should symptoms return or worsen. - Patient Instructions Diet: Usual Diet as Tolerated Diet, Other: Recommend boost protein supplement, or similar Activity: As Tolerated Driving: Do Not Drive Showering/Bathing: May Shower Notify Provider of: Fever, Increased Pain, Nausea and/or Vomiting Other/Special Instructions: Follow-up with primary care provider within 7-10 days of discharge, sooner if needed. Our operations planner was in to discuss home services and you refused. Should you change your mind you can contact your formerly [facility] high school social studies teacher office or discuss this with your primary care provider. Your potassium and magnesium were both low here. You have been provided a few days worth of supplementation of both. We discussed your smoking status and you indicated that you will likely be a lifelong smoker. You were offered nicotine patches and cessation counseling, which you refused. You were given the names of multiple resources on discharge such as [facility] and your primary care provider for assistance with smoking cessation. Should you change your mind you can contact them directly. Take all home medications as directed. You saw our care director rn who recommend a high calorie/high protein supplement such as boost once or twice daily. Be sure to attempt to eat more regular meals. Protein is your friend. Stay hydrated. Continue to drink your gaitoraid. You will continue to be weak and have falls unless you build some muscle strength back up. You may contact our care director rn here in the hospital if you would like for more advice. Recommend you follow-up with urology regarding continued incontinence. Our physical therapy departemend recommended you obtain some assistance thorugh a [facility] facility. You have refused this. Should you change your mind you may contact one of the facilites directly for admission. Recommending you continue physical and occupational therapy. You have been refusing this on discharge. Should you change your mind we recommend you contact a therapy center office to set this up outpatient. Should symptoms return or worsen contact primary care provider or return to the Emergency Department. - Discharge Plan *PRESCRIPTION DRUG MONITORING PROGRAM REVIEWED*: No *COPY OF PRESCRIPTION DRUG MONITORING REPORT IN PATIENT EBONIE: No Prescriptions/Med Rec: Magnesium Oxide [Magnesium] 400 mg PO DAILY #5 tablet Potassium Chloride 20 meq PO DAILY #3 tablet.er Home Medications: Home Meds Tolterodine Tartrate [Detrol LA] 4 mg PO DAILY 06/28/19 [History] Vitamin B Complex 1 tab PO DAILY 06/28/19 [History] busPIRone [Buspar] 10 mg PO BID 06/28/19 [History] levETIRAcetam [Keppra] 500 mg PO BID 06/28/19 [History] Magnesium Oxide [Magnesium] 400 mg PO DAILY #5 tablet 07/04/20 [Rx] Potassium Chloride 20 meq PO DAILY #3 tablet.er 07/04/20 [Rx] Oxygen Therapy Mode: Room Air Patient Handouts: High-Protein and High-Calorie Diet, Protein Content in Foods, Weakness, [id number]-Aduc, Failure to Thrive, Adult, [id number], Steps to Quit Smoking Forms: ED Department Discharge Referrals: Norma Curtis MD [Consulting Physician] - - Discharge Summary/Plan Comment DC Time >30 min.: Yes (60 minutes ) - General Info Date of Service: 07/04/20 Admission Dx/Problem (Free Text: Admission Diagnosis/Problem Admission Diagnosis/Problem Hypokalemia Functional Status: Reports: Pain Controlled, Tolerating Diet, Ambulating, Urina ting. Denies: New Symptoms - Review of Systems General: Reports: No Symptoms. Denies: Fever, Weakness (denies), Fatigue, Malaise, Chills HEENT: Reports: No Symptoms. Denies: Headaches, Sore Throat Pulmonary: Reports: No Symptoms. Denies: Shortness of Breath, Pleuritic Chest Pain, Cough, Sputum, Wheezing Cardiovascular: Reports: No Symptoms. Denies: Chest Pain, Palpitations, Dyspnea on Exertion, Edema Gastrointestinal: Reports: No Symptoms. Denies: Abdominal Pain, Constipation, Diarrhea, Nausea, Vomiting Genitourinary: Reports: Incontinence. Denies: Pain Musculoskeletal: Reports: No Symptoms Skin: Reports: No Symptoms. Denies: Cyanosis Neurological: Reports: No Symptoms. Denies: Confusion, Difficulty Walking (denies ) Psychiatric: Reports: No Symptoms - Patient Data Vitals - Most Recent: Last Vital Signs Temp 97.8 F 07/04/20 15:19 Pulse 67 07/04/20 00:01 Resp 19 07/04/20 15:19 BP 89/64 L 07/04/20 15:19 Pulse Ox 97 07/04/20 15:19 Weight - Most Recent: 96 lb 12.8 oz I&O - Last 24 hours: Intake & Output 07/04/20 07/04/20 07/04/20 06:59 14:59 22:59 Intake Total 6771 516 2650 Output Total 200 Balance 1065 40 1056 Lab Results - Last 24 hrs: Laboratory Results - last 24 hr 07/03/20 07/03/20 07/03/20 Range/Units 19:26 20:05 20:05 WBC 4.87 (3.98-10.04) K/mm3 RBC 3.91 L (3.98-5.22) M/mm3 Hgb 13.9 (11.2-15.7) gm/dl Hct 39.7 (34.1-44.9) % MCV 101.5 H (79.4-94.8) fl MCH 35.5 H (25.6-32.2) pg MCHC 35.0 (32.2-35.5) g/dl RDW Std Deviation 55.0 H (36.4-46.3) fL Plt Count 218 (182-369) K/mm3 MPV 10.1 (9.4-12.3) fl Neut % (Auto) 68.2 (34.0-71.1) % Lymph % (Auto) 18.7 L (19.3-51.7) % Lucas % (Auto) 12.5 (4.7-12.5) % Eos % (Auto) 0.2 L (0.7-5.8) Baso % (Auto) 0.2 (0.1-1.2) % Neut # (Auto) 3.32 (1.56-6.13) K/mm3 Lymph # (Auto) 0.91 L (1.18-3.74) K/mm3 Lucas # (Auto) 0.61 H (0.24-0.36) K/mm3 Eos # (Auto) 0.01 L (0.04-0.36) K/mm3 Baso # (Auto) 0.01 (0.01-0.08) K/mm3 Manual Slide Review Sodium 133 L (136-145) mEq/L Potassium 2.6 L (3.5-5.1) mEq/L Chloride 90 L (98-107) mEq/L Carbon Dioxide 28 (21-32) mEq/L Anion Gap 17.6 H (5-15) BUN 16 (7-18) mg/dL Creatinine 1.0 (0.55-1.02) mg/dL Est Cr Clr Drug Dosing 30.84 mL/min Estimated GFR (MDRD) 54 (>60) mL/min BUN/Creatinine Ratio 16.0 (14-18) Glucose 108 (83-115) mg/dL Calcium 10.0 (8.5-10.1) mg/dL Magnesium (1.8-2.4) mg/dl Total Bilirubin 0.6 (0.2-1.0) mg/dL AST 54 H (15-37) U/L ALT 53 (14-59) U/L Alkaline Phosphatase 117 H (46-116) U/L Troponin I (0.00-0.056) ng/mL C-Reactive Protein 1.4 H* (<1.0) mg/dL Total Protein 7.3 (6.4-8.2) g/dl Albumin 3.6 (3.4-5.0) g/dl Globulin 3.7 gm/dL Albumin/Globulin Ratio 1.0 (1-2) Urine Color Yellow (Yellow) Urine Appearance Clear (Clear) Urine pH 6.5 (5.0-8.0) Ur Specific [place] 1.015 (1.005-1.030) Urine Protein Trace H (Negative) Urine Glucose (UA) Negative (Negative) Urine Ketones 1+ H (Negative) Urine Occult Blood Negative (Negative) Urine Nitrite Negative (Negative) Urine Bilirubin 2+ H (Negative) Urine Urobilinogen 1.0 (0.2-1.0) Ur Leukocyte Esterase Negative (Negative) Urine RBC 0-5 (0-5) /hpf Urine WBC 0-5 (0-5) /hpf Ur Squamous Epith Cells 10-20 H (0-5) /hpf Urine Bacteria Few (FEW) /hpf Urine Mucus Few (FEW) /hpf COVID-19 (CHARLES) (NEGATIVE) 07/03/20 07/03/20 07/04/20 Range/Units 20:05 21:23 06:00 WBC 4.75 (3.98-10.04) K/mm3 RBC 3.53 L (3.98-5.22) M/mm3 Hgb 12.4 D (11.2-15.7) gm/dl Hct 36.6 (34.1-44.9) % MCV 103.7 H (79.4-94.8) fl MCH 35.1 H (25.6-32.2) pg MCHC 33.9 (32.2-35.5) g/dl RDW Std Deviation 56.4 H (36.4-46.3) fL Plt Count 205 (182-369) K/mm3 MPV 10.6 (9.4-12.3) fl Neut % (Auto) 45.5 (34.0-71.1) % Lymph % (Auto) 35.8 (19.3-51.7) % Lucas % (Auto) 15.6 H (4.7-12.5) % Eos % (Auto) 2.5 (0.7-5.8) Baso % (Auto) 0.4 (0.1-1.2) % Neut # (Auto) 2.16 (1.56-6.13) K/mm3 Lymph # (Auto) 1.70 (1.18-3.74) K/mm3 Lucas # (Auto) 0.74 H (0.24-0.36) K/mm3 Eos # (Auto) 0.12 (0.04-0.36) K/mm3 Baso # (Auto) 0.02 (0.01-0.08) K/mm3 Manual Slide Review Normal smear Sodium (136-145) mEq/L Potassium (3.5-5.1) mEq/L Chloride (98-107) mEq/L Carbon Dioxide (21-32) mEq/L Anion Gap (5-15) BUN (7-18) mg/dL Creatinine (0.55-1.02) mg/dL Est Cr Clr Drug Dosing mL/min Estimated GFR (MDRD) (>60) mL/min BUN/Creatinine Ratio (14-18) Glucose (83-115) mg/dL Calcium (8.5-10.1) mg/dL Magnesium (1.8-2.4) mg/dl Total Bilirubin (0.2-1.0) mg/dL AST (15-37) U/L ALT (14-59) U/L Alkaline Phosphatase (46-116) U/L Troponin I < 0.017 (0.00-0.056) ng/mL C-Reactive Protein (<1.0) mg/dL Total Protein (6.4-8.2) g/dl Albumin (3.4-5.0) g/dl Globulin gm/dL Albumin/Globulin Ratio (1-2) Urine Color (Yellow) Urine Appearance (Clear) Urine pH (5.0-8.0) Ur Specific [place] (1.005-1.030) Urine Protein (Negative) Urine Glucose (UA) (Negative) Urine Ketones (Negative) Urine Occult Blood (Negative) Urine Nitrite (Negative) Urine Bilirubin (Negative) Urine Urobilinogen (0.2-1.0) Ur Leukocyte Esterase (Negative) Urine RBC (0-5) /hpf Urine WBC (0-5) /hpf Ur Squamous Epith Cells (0-5) /hpf Urine Bacteria (FEW) /hpf Urine Mucus (FEW) /hpf COVID-19 (CHARLES) Negative (NEGATIVE) 07/04/20 Range/Units 06:00 WBC (3.98-10.04) K/mm3 RBC (3.98-5.22) M/mm3 Hgb (11.2-15.7) gm/dl Hct (34.1-44.9) % MCV (79.4-94.8) fl MCH (25.6-32.2) pg MCHC (32.2-35.5) g/dl RDW Std Deviation (36.4-46.3) fL Plt Count (182-369) K/mm3 MPV (9.4-12.3) fl Neut % (Auto) (34.0-71.1) % Lymph % (Auto) (19.3-51.7) % Lucas % (Auto) (4.7-12.5) % Eos % (Auto) (0.7-5.8) Baso % (Auto) (0.1-1.2) % Neut # (Auto) (1.56-6.13) K/mm3 Lymph # (Auto) (1.18-3.74) K/mm3 Lucas # (Auto) (0.24-0.36) K/mm3 Eos # (Auto) (0.04-0.36) K/mm3 Baso # (Auto) (0.01-0.08) K/mm3 Manual Slide Review Sodium 137 (136-145) mEq/L Potassium 3.8 (3.5-5.1) mEq/L Chloride 99 (98-107) mEq/L Carbon Dioxide 30 (21-32) mEq/L Anion Gap 11.8 (5-15) BUN 16 (7-18) mg/dL Creatinine 1.0 (0.55-1.02) mg/dL Est Cr Clr Drug Dosing 33.17 mL/min Estimated GFR (MDRD) 54 (>60) mL/min BUN/Creatinine Ratio 16.0 (14-18) Glucose 101 (83-115) mg/dL Calcium 9.2 (8.5-10.1) mg/dL Magnesium 1.4 L (1.8-2.4) mg/dl Total Bilirubin 0.4 (0.2-1.0) mg/dL AST 47 H (15-37) U/L ALT 46 (14-59) U/L Alkaline Phosphatase 108 (46-116) U/L Troponin I (0.00-0.056) ng/mL C-Reactive Protein (<1.0) mg/dL Total Protein 6.4 (6.4-8.2) g/dl Albumin 3.1 L (3.4-5.0) g/dl Globulin 3.3 gm/dL Albumin/Globulin Ratio 0.9 L (1-2) Urine Color (Yellow) Urine Appearance (Clear) Urine pH (5.0-8.0) Ur Specific [place] (1.005-1.030) Urine Protein (Negative) Urine Glucose (UA) (Negative) Urine Ketones (Negative) Urine Occult Blood (Negative) Urine Nitrite (Negative) Urine Bilirubin (Negative) Urine Urobilinogen (0.2-1.0) Ur Leukocyte Esterase (Negative) Urine RBC (0-5) /hpf Urine WBC (0-5) /hpf Ur Squamous Epith Cells (0-5) /hpf Urine Bacteria (FEW) /hpf Urine Mucus (FEW) /hpf COVID-19 (CHARLES) (NEGATIVE) Med Orders - Current: Current Medications Acetaminophen (Tylenol) 650 mg PO Q4H PRN PRN Reason: Pain (Mild 1-3)/fever Last Admin: 07/03/20 23:16 Dose: 650 mg Documented by: Enoxaparin Sodium (Lovenox) 40 mg SUBCUT DAILY [facility] Last Admin: 07/04/20 08:06 Dose: 40 mg Documented by: Sodium Chloride (Normal Saline) 1,000 mls @ 100 mls/hr IV ASDIRECTED [facility] Last Admin: 07/04/20 06:33 Dose: 100 mls/hr Documented by: Miscellaneous Information (Remove Patch) 0 ea TRDERM Q24H [facility] Nicotine (Habitrol) 14 mg TRDERM DAILY [facility] Last Admin: 07/04/20 10:29 Dose: 14 mg Documented by: Sodium Chloride (Saline Flush) 10 ml FLUSH ASDIRECTED PRN PRN Reason: Keep Vein Open Last Admin: 07/03/20 20:22 Dose: 10 ml Documented by: Discontinued Medications Potassium Chloride 10 meq/ (Premix) 100 mls @ 100 mls/hr IV Q1H [facility] Stop: 07/04/20 01:14 Last Admin: 07/04/20 01:29 Dose: 100 mls/hr Documented by: Magnesium Sulfate 4 gm/ Premix 50 mls @ 12.5 mls/hr IV ONETIME ONE Stop: 07/04/20 13:02 Last Admin: 07/04/20 09:44 Dose: 12.5 mls/hr Documented by: Potassium Chloride (Klor-Con M20) 40 meq PO ONETIME ONE Stop: 07/03/20 21:10 Last Admin: 07/03/20 21:18 Dose: 40 meq Documented by: - Exam Quality Assessment: Reports: DVT Prophylaxis General: Reports: Alert, Oriented, Cooperative, No Acute Distress, Other (Cachectic) HEENT: Reports: Pupils Equal, Pupils Reactive, Mucous Membr. Moist/Crozier Neck: Reports: Supple, Trachea Midline Lungs: Reports: Clear to Auscultation, Normal Respiratory Effort Cardiovascular: Reports: Regular Rate, Regular Rhythm GI/Abdominal Exam: Normal Bowel Sounds, Soft, Non-Tender, No Distention (Female) Exam: Deferred Rectal (Female) Exam: Deferred Back Exam: Reports: Normal Inspection, Full Range of Motion Extremities: Normal Range of Motion, Non-Tender, No Pedal Edema, Other (Scattered bruising on legs and knees) Skin: Reports: Warm, Dry, Intact Neurological: Reports: No New Focal Deficit Psy/Mental Status: Reports: Alert
== END 2020-07-04 16:49 | disposition home or self-care (01) | DRG 641 ==
LOC: JD.ED 18:05 → JD.ICU 21:11 → UNDOADMIN 21:59 → JD.ICU 21:59 → UNDODISIN 07-04 16:49
PROVIDERS: ADMIT Family Medicine; ATTEND Family Medicine
DX: E87.6 Hypokalemia (principal); E46 Unspecified protein-calorie malnutrition; Z68.1 Body mass index [BMI] 19.9 or less, adult; Z90.13 Acquired absence of bilateral breasts and nipples; F17.200 Nicotine dependence, unspecified, uncomplicated; F17.210 Nicotine dependence, cigarettes, uncomplicated; Z60.9 Problem related to social environment, unspecified; R62.7 Adult failure to thrive; Z66 Do not resuscitate; Z20.828 Contact with and (suspected) exposure to other viral communicable diseases; R29.6 Repeated falls; R53.1 Weakness; E83.42 Hypomagnesemia; G40.909 Epilepsy, unspecified, not intractable, without status epilepticus; F41.9 Anxiety disorder, unspecified; R32 Unspecified urinary incontinence; Z85.3 Personal history of malignant neoplasm of breast; Z90.10 Acquired absence of unspecified breast and nipple; Z79.899 Other long term (current) drug therapy; Z98.49 Cataract extraction status, unspecified eye; Z90.710 Acquired absence of both cervix and uterus
CPT/HCPCS: 36415; 70450; 71046; 80053; 81001; 84484; 85025; 86140; 93005; A9270; J3480; J7030; U0002; 83735; 92523-GN; 97163-GP; 97165-GO; 97530-GO; 99223; 99285; 99285-25; J1650; J3475

== ENCOUNTER 2020-12-17 17:18 | Emergency (ER) | payer MEDICARE, OTHER ==
[2020-12-17] MEDS ORDERED: Lactated Ringers 1,000 ML IV ONE (17:33)
--- NOTE | 2020-12-17 17:37 | EDM.PDOC ---
<Juan Diego Ayala - Last Filed: 12/17/20 18:34> ED HPI GENERAL MEDICAL PROBLEM - General Chief Complaint: General Stated Complaint: [facility] Time Seen by Provider: 12/17/20 17:18 - History of Present Illness INITIAL COMMENTS - FREE TEXT/NARRATIVE: 75-year-old female presents the emergency room brought in by EMS with increasing weakness. By mechanism is unclear to me EMS was called to the patient's house. Found the patient in a poor state of hygiene extremely weak and tired is unclear when the last time she had anything to eat or drink was. It was difficult for EMS to convince the patient to come in to the emergency room but she finally consented to coming in. At this point the patient denies hurting anywhere. EMS was concerned she is extremely dehydrated In the past the patient's been admitted here apparently she has a history of alcoholism. The patient has had been urged to go to snf facilities in the past but is declined all these the patient accepts crawling around in her house apparently the state of hygiene in her house is quite poor. - Related Data Allergies Allergy/AdvReac Type Severity Reaction Status Date / Time No Known Allergies Allergy Verified 12/17/20 17:28 Home Meds: Home Meds Tolterodine Tartrate [Detrol LA] 4 mg PO DAILY 06/28/19 [History] Vitamin B Complex 1 tab PO DAILY 06/28/19 [History] busPIRone [Buspar] 10 mg PO BID 06/28/19 [History] levETIRAcetam [Keppra] 500 mg PO BID 06/28/19 [History] Magnesium Oxide [Magnesium] 400 mg PO DAILY #5 tablet 07/04/20 [Rx] Potassium Chloride 20 meq PO DAILY #3 tablet.er 07/04/20 [Rx] Past Medical History HEENT History: Reports: Cataract Genitourinary History: Reports: Urinary Incontinence ATTENUATOR History: Reports: Musculoskeletal History: Reports: Other (See Below) Other Musculoskeletal History: bunions removal Neurological History: Reports: Seizure Psychiatric History: Reports: Anxiety Oncologic (Cancer) History: Reports: Breast - Past Surgical History Female Surgical History: Reports: Mastectomy, Other (See Below) Other Female Surgeries/Procedures: double mastectomy Social & Family History - Family History Family Medical History: No Pertinent Family History - Caffeine Use Caffeine Use: Reports: Coffee ED ROS GENERAL - Review of Systems Review Of Systems: See Below Reason Not Obtained: Review of systems is limited Constitutional: Reports: Weakness, Fatigue. Denies: Fever, Chills HEENT: Reports: No Symptoms Respiratory: Reports: No Symptoms Cardiovascular: Reports: No Symptoms Endocrine: Reports: No Symptoms GI/Abdominal: Reports: Decreased Appetite. Denies: Abdominal Pain, Constipation, Diarrhea, Nausea, Vomiting ED EXAM, GENERAL - Physical Exam Exam: See Below Exam Limited By: Other (Weakness) General Appearance: Cachetic, Other (Patient is in a poor state of hygiene she has extremely dry mouth lots of debris on her teeth she has significant skin tenting) Eye Exam: Bilateral Eye: Normal Inspection Ears: Normal External Exam, Normal Canal, Hearing Grossly Normal, Normal TMs, Other Nose: Normal Inspection, Normal Mucosa, No Blood Throat/Mouth: Other (Dry mucous membranes she has a hard time adequately opening her mouth) Head: Atraumatic, Normocephalic Neck: No: Lymphadenopathy (L), Lymphadenopathy (R) Respiratory/Chest: No Respiratory Distress, Lungs Clear, Normal Breath Sounds Cardiovascular: No Edema, No Murmur, Tachycardia (Rate approximately 110) GI/Abdominal: Normal Bowel Sounds, Soft, Non-Tender Back Exam: Normal Inspection Extremities: No Pedal Edema Neurological: Other (She is generally weak and slow to respond but does answer questions appropriately) Psychiatric: Flat Affect Skin Exam: Other (Skin tenting noted on upper and lower extremities. ) Lymphatic: No Adenopathy Course - Re-Assessments/Exams Free Text/Narrative Re-Assessment/Exam: 12/17/20 19:03 Labs are starting to come back she is extremely dehydrated with an elevated sodium at 156 calcium at 16. She will have her LR changed to NS. At this point it is change of shift further care and disposition per Dr. Ashley. Departure - Departure Disposition: DC/Tfer to [facility] 02 Clinical Impression: Hypercalcemia, Hypernatremia, Intravascular volume depletion, Acute renal insufficiency, Hepatitis - Discharge Information Referrals: PCP,Unknown [Ordering Only Provider] - Forms: ED Department Discharge <Zain Ashley - Last Filed: 12/17/20 22:33> Past Medical History - Past Surgical History HEENT Surgical History: Reports: Cataract Surgery (bilateral) Female Surgical History: Reports: Hysterectomy, Mastectomy (bilateral) Musculoskeletal Surgical History: Reports: Other (See Below) (Bilateral bunionectomy) Social & Family History - Tobacco Use Tobacco Use Status *Q: Current Every Day Tobacco User Years of Tobacco use: 59 Packs/Tins Daily: 0.2 Tobacco Use Comment: Since 16 yrs old - Living Situation & Occupation Living situation: Reports: Alone Occupation: Retired Course - Vital Signs Last Recorded V/S: Last Vital Signs Temp 35.9 C L 12/17/20 17:33 Pulse 112 H 12/17/20 17:33 Resp 22 H 12/17/20 17:33 BP 106/89 12/17/20 17:33 Pulse Ox 93 L 12/17/20 17:33 - Orders/Labs/Meds Orders: Active Orders 24 hr Category Date Time Status CULTURE BLOOD [BC] Stat Lab 12/17/20 18:00 Received CULTURE BLOOD [BC] Stat Lab 12/17/20 18:10 Received Sodium Chloride 0.9% [Normal Saline] 1,000 ml Med 12/17/20 20:30 Active IV ASDIRECTED Blood Culture x2 Reflex Set [OM.PC] Stat Oth 12/17/20 17:30 Ordered Medication Orders Sodium Chloride (Normal Saline) 1,000 mls @ 250 mls/hr IV ASDIRECTED GUEVARA Last Admin: 12/17/20 20:28 Dose: 250 mls/hr Documented by: WES Labs: Laboratory Tests 12/17/20 12/17/20 12/17/20 Range/Units 17:48 18:00 18:00 WBC 10.89 H (3.98-10.04) K/mm3 RBC 5.92 H (3.98-5.22) M/mm3 Hgb 17.9 H D (11.2-15.7) gm/dl Hct 55.7 H (34.1-44.9) % MCV 94.1 D (79.4-94.8) fl MCH 30.2 (25.6-32.2) pg MCHC 32.1 L (32.2-35.5) g/dl RDW Std Deviation 55.0 H (36.4-46.3) fL Plt Count 270 (182-369) K/mm3 MPV 10.5 (9.4-12.3) fl Neutrophils % (Manual) 68 H (40-60) % Band Neutrophils % 0 (0-10) % Lymphocytes % (Manual) 25 (20-40) % Atypical Lymphs % 0 % Monocytes % (Manual) 7 (2-10) % Eosinophils % (Manual) 0 L (0.7-5.8) % Basophils % (Manual) 0 L (0.1-1.2) Platelet Estimate Adequate Plt Morphology Comment Normal RBC Morph Comment Normal PT 12.8 H (9.7-12.0) SECONDS INR 1.20 Sodium (136-145) mEq/L Potassium (3.5-5.1) mEq/L Chloride (98-107) mEq/L Carbon Dioxide (21-32) mEq/L Anion Gap (5-15) BUN (7-18) mg/dL Creatinine (0.55-1.02) mg/dL Est Cr Clr Drug Dosing mL/min Estimated GFR (MDRD) (>60) mL/min BUN/Creatinine Ratio (14-18) Glucose (83-115) mg/dL Lactic Acid (0.4-2.0) mmol/L Calcium (8.5-10.1) mg/dL Magnesium (1.8-2.4) mg/dl Total Bilirubin (0.2-1.0) mg/dL AST (15-37) U/L ALT (14-59) U/L Alkaline Phosphatase (46-116) U/L Creatine Kinase (26-192) U/L Troponin I (0.00-0.056) ng/mL Total Protein (6.4-8.2) g/dl Albumin (3.4-5.0) g/dl Globulin gm/dL Albumin/Globulin Ratio (1-2) Urine Color (Yellow) Urine Appearance (Clear) Urine pH (5.0-8.0) Ur Specific [place] (1.005-1.030) Urine Protein (Negative) Urine Glucose (UA) (Negative) Urine Ketones (Negative) Urine Occult Blood (Negative) Urine Nitrite (Negative) Urine Bilirubin (Negative) Urine Urobilinogen (0.2-1.0) Ur Leukocyte Esterase (Negative) U Hyaline Cast (Auto) (0-5) /lpf Urine RBC (0-5) /hpf Urine WBC (0-5) /hpf Ur Squamous Epith Cells (0-5) /hpf Urine Bacteria (FEW) /hpf Urine Mucus (FEW) /hpf Urine Opiates Screen (LUBNSX=117) Ur Buprenorphine Scrn (CUTOFF=10) Ur Oxycodone Screen (SLH1EV=647) Urine Methadone Screen (UBYEOI=583) Ur Propoxyphene Screen (FBTCBH=104) Ur Barbiturates Screen (XWUPMY=337) Ur Tricyclics Screen (WVSSIX=513) Ur Phencyclidine Scrn (CUTOFF=25) Ur Amphetamine Screen (VIWYFY=644) U Methamphetamines Scrn (JFEGWS=520) U Benzodiazepines Scrn (ZJRUIC=112) U Cocaine Metab Screen (FEMRCJ=187) U Marijuana (THC) Screen (CUTOFF=50) Ethyl Alcohol (0.00) gm% SARS-CoV-2 RNA (CHARLES) Negative (NEGATIVE) 12/17/20 12/17/20 12/17/20 Range/Units 18:00 18:00 18:00 WBC (3.98-10.04) K/mm3 RBC (3.98-5.22) M/mm3 Hgb (11.2-15.7) gm/dl Hct (34.1-44.9) % MCV (79.4-94.8) fl MCH (25.6-32.2) pg MCHC (32.2-35.5) g/dl RDW Std Deviation (36.4-46.3) fL Plt Count (182-369) K/mm3 MPV (9.4-12.3) fl Neutrophils % (Manual) (40-60) % Band Neutrophils % (0-10) % Lymphocytes % (Manual) (20-40) % Atypical Lymphs % % Monocytes % (Manual) (2-10) % Eosinophils % (Manual) (0.7-5.8) % Basophils % (Manual) (0.1-1.2) Platelet Estimate Plt Morphology Comment RBC Morph Comment PT (9.7-12.0) SECONDS INR Sodium 156 H D (136-145) mEq/L Potassium 3.6 (3.5-5.1) mEq/L Chloride 111 H D (98-107) mEq/L Carbon Dioxide 31 (21-32) mEq/L Anion Gap 17.6 H (5-15) BUN 77 H D (7-18) mg/dL Creatinine 2.0 H (0.55-1.02) mg/dL Est Cr Clr Drug Dosing 16.87 mL/min Estimated GFR (MDRD) 24 (>60) mL/min BUN/Creatinine Ratio 38.5 H (14-18) Glucose 111 (83-115) mg/dL Lactic Acid 2.6 H* (0.4-2.0) mmol/L Calcium 16.1 H* D (8.5-10.1) mg/dL Magnesium 2.5 H (1.8-2.4) mg/dl Total Bilirubin 1.1 H (0.2-1.0) mg/dL AST 230 H (15-37) U/L ALT 112 H (14-59) U/L Alkaline Phosphatase 240 H (46-116) U/L Creatine Kinase (26-192) U/L Troponin I (0.00-0.056) ng/mL Total Protein 8.1 (6.4-8.2) g/dl Albumin 2.9 L (3.4-5.0) g/dl Globulin 5.2 gm/dL Albumin/Globulin Ratio 0.6 L (1-2) Urine Color (Yellow) Urine Appearance (Clear) Urine pH (5.0-8.0) Ur Specific [place] (1.005-1.030) Urine Protein (Negative) Urine Glucose (UA) (Negative) Urine Ketones (Negative) Urine Occult Blood (Negative) Urine Nitrite (Negative) Urine Bilirubin (Negative) Urine Urobilinogen (0.2-1.0) Ur Leukocyte Esterase (Negative) U Hyaline Cast (Auto) (0-5) /lpf Urine RBC (0-5) /hpf Urine WBC (0-5) /hpf Ur Squamous Epith Cells (0-5) /hpf Urine Bacteria (FEW) /hpf Urine Mucus (FEW) /hpf Urine Opiates Screen (DLYHKM=160) Ur Buprenorphine Scrn (CUTOFF=10) Ur Oxycodone Screen (QKS6EX=107) Urine Methadone Screen (HSEVQO=294) Ur Propoxyphene Screen (FHNGUQ=200) Ur Barbiturates Screen (GLGRNZ=876) Ur Tricyclics Screen (TXOESC=994) Ur Phencyclidine Scrn (CUTOFF=25) Ur Amphetamine Screen (LYKNOW=937) U Methamphetamines Scrn (BEUVDK=000) U Benzodiazepines Scrn (TLMEOI=827) U Cocaine Metab Screen (RCFCCR=008) U Marijuana (THC) Screen (CUTOFF=50) Ethyl Alcohol 0.00 (0.00) gm% SARS-CoV-2 RNA (CHARLES) (NEGATIVE) 12/17/20 12/17/20 12/17/20 Range/Units 18:00 18:00 18:16 WBC (3.98-10.04) K/mm3 RBC (3.98-5.22) M/mm3 Hgb (11.2-15.7) gm/dl Hct (34.1-44.9) % MCV (79.4-94.8) fl MCH (25.6-32.2) pg MCHC (32.2-35.5) g/dl RDW Std Deviation (36.4-46.3) fL Plt Count (182-369) K/mm3 MPV (9.4-12.3) fl Neutrophils % (Manual) (40-60) % Band Neutrophils % (0-10) % Lymphocytes % (Manual) (20-40) % Atypical Lymphs % % Monocytes % (Manual) (2-10) % Eosinophils % (Manual) (0.7-5.8) % Basophils % (Manual) (0.1-1.2) Platelet Estimate Plt Morphology Comment RBC Morph Comment PT (9.7-12.0) SECONDS INR Sodium (136-145) mEq/L Potassium (3.5-5.1) mEq/L Chloride (98-107) mEq/L Carbon Dioxide (21-32) mEq/L Anion Gap (5-15) BUN (7-18) mg/dL Creatinine (0.55-1.02) mg/dL Est Cr Clr Drug Dosing mL/min Estimated GFR (MDRD) (>60) mL/min BUN/Creatinine Ratio (14-18) Glucose (83-115) mg/dL Lactic Acid (0.4-2.0) mmol/L Calcium (8.5-10.1) mg/dL Magnesium (1.8-2.4) mg/dl Total Bilirubin (0.2-1.0) mg/dL AST (15-37) U/L ALT (14-59) U/L Alkaline Phosphatase (46-116) U/L Creatine Kinase 462 H (26-192) U/L Troponin I < 0.017 (0.00-0.056) ng/mL Total Protein (6.4-8.2) g/dl Albumin (3.4-5.0) g/dl Globulin gm/dL Albumin/Globulin Ratio (1-2) Urine Color Yellow (Yellow) Urine Appearance Clear (Clear) Urine pH 5.5 (5.0-8.0) Ur Specific [place] > or = 1.030 (1.005-1.030) Urine Protein 1+ H (Negative) Urine Glucose (UA) Negative (Negative) Urine Ketones Negative (Negative) Urine Occult Blood Negative (Negative) Urine Nitrite Negative (Negative) Urine Bilirubin 2+ H (Negative) Urine Urobilinogen 1.0 (0.2-1.0) Ur Leukocyte Esterase Negative (Negative) U Hyaline Cast (Auto) 20-30 H (0-5) /lpf Urine RBC Not seen (0-5) /hpf Urine WBC 0-5 (0-5) /hpf Ur Squamous Epith Cells 0-5 (0-5) /hpf Urine Bacteria Few (FEW) /hpf Urine Mucus Not seen (FEW) /hpf Urine Opiates Screen (FNIDBM=151) Ur Buprenorphine Scrn (CUTOFF=10) Ur Oxycodone Screen (DNR1OX=095) Urine Methadone Screen (NLIEAR=148) Ur Propoxyphene Screen (OOWHOE=738) Ur Barbiturates Screen (HLYUNX=308) Ur Tricyclics Screen (ZAKDJO=997) Ur Phencyclidine Scrn (CUTOFF=25) Ur Amphetamine Screen (WRHLLF=620) U Methamphetamines Scrn (LKMYII=740) U Benzodiazepines Scrn (JROKZG=633) U Cocaine Metab Screen (VSLAMJ=234) U Marijuana (THC) Screen (CUTOFF=50) Ethyl Alcohol (0.00) gm% SARS-CoV-2 RNA (CHARLES) (NEGATIVE) 12/17/20 12/17/20 Range/Units 18:16 21:40 WBC (3.98-10.04) K/mm3 RBC (3.98-5.22) M/mm3 Hgb (11.2-15.7) gm/dl Hct (34.1-44.9) % MCV (79.4-94.8) fl MCH (25.6-32.2) pg MCHC (32.2-35.5) g/dl RDW Std Deviation (36.4-46.3) fL Plt Count (182-369) K/mm3 MPV (9.4-12.3) fl Neutrophils % (Manual) (40-60) % Band Neutrophils % (0-10) % Lymphocytes % (Manual) (20-40) % Atypical Lymphs % % Monocytes % (Manual) (2-10) % Eosinophils % (Manual) (0.7-5.8) % Basophils % (Manual) (0.1-1.2) Platelet Estimate Plt Morphology Comment RBC Morph Comment PT (9.7-12.0) SECONDS INR Sodium (136-145) mEq/L Potassium (3.5-5.1) mEq/L Chloride (98-107) mEq/L Carbon Dioxide (21-32) mEq/L Anion Gap (5-15) BUN (7-18) mg/dL Creatinine (0.55-1.02) mg/dL Est Cr Clr Drug Dosing mL/min Estimated GFR (MDRD) (>60) mL/min BUN/Creatinine Ratio (14-18) Glucose (83-115) mg/dL Lactic Acid 3.4 H* (0.4-2.0) mmol/L Calcium (8.5-10.1) mg/dL Magnesium (1.8-2.4) mg/dl Total Bilirubin (0.2-1.0) mg/dL AST (15-37) U/L ALT (14-59) U/L Alkaline Phosphatase (46-116) U/L Creatine Kinase (26-192) U/L Troponin I (0.00-0.056) ng/mL Total Protein (6.4-8.2) g/dl Albumin (3.4-5.0) g/dl Globulin gm/dL Albumin/Globulin Ratio (1-2) Urine Color (Yellow) Urine Appearance (Clear) Urine pH (5.0-8.0) Ur Specific [place] (1.005-1.030) Urine Protein (Negative) Urine Glucose (UA) (Negative) Urine Ketones (Negative) Urine Occult Blood (Negative) Urine Nitrite (Negative) Urine Bilirubin (Negative) Urine Urobilinogen (0.2-1.0) Ur Leukocyte Esterase (Negative) U Hyaline Cast (Auto) (0-5) /lpf Urine RBC (0-5) /hpf Urine WBC (0-5) /hpf Ur Squamous Epith Cells (0-5) /hpf Urine Bacteria (FEW) /hpf Urine Mucus (FEW) /hpf Urine Opiates Screen Negative (BYQQKA=802) Ur Buprenorphine Scrn Negative (CUTOFF=10) Ur Oxycodone Screen Negative (ZBZ6WO=499) Urine Methadone Screen Negative (WBUPIL=057) Ur Propoxyphene Screen Negative (IIPPLJ=581) Ur Barbiturates Screen Negative (PIBMVR=432) Ur Tricyclics Screen Negative (ALAQHS=417) Ur Phencyclidine Scrn Negative (CUTOFF=25) Ur Amphetamine Screen Negative (METSTZ=689) U Methamphetamines Scrn Negative (EQBIHV=659) U Benzodiazepines Scrn Negative (VKDBYI=210) U Cocaine Metab Screen Negative (GRKCPE=423) U Marijuana (THC) Screen Negative (CUTOFF=50) Ethyl Alcohol (0.00) gm% SARS-CoV-2 RNA (CHARLES) (NEGATIVE) Meds: Medications Generic Name Dose Route Start Last Admin Trade Name Freq PRN Reason Stop Dose Admin Sodium Chloride 1,000 mls @ 250 mls/hr 12/17/20 20:30 12/17/20 20:28 Normal Saline IV 250 mls/hr ASDIRECTED GUEVARA Administration Discontinued Medications Generic Name Dose Route Start Last Admin Trade Name Freq PRN Reason Stop Dose Admin Calcitonin [place] 180 units 12/17/20 20:28 12/17/20 21:30 Miacalcin SUBCUT 12/17/20 20:29 180 units ONETIME STA Administration Lactated Ringer's 1,000 mls @ 999 mls/hr 12/17/20 17:33 12/17/20 17:47 Ringers, Lactated IV 12/17/20 18:33 999 mls/hr .BOLUS ONE Administration Lactated Ringer's 1,000 mls @ 500 mls/hr 12/17/20 18:45 Ringers, Lactated IV ASDIRECTED GUEVARA Sodium Chloride 1,000 mls @ 999 mls/hr 12/17/20 19:09 12/17/20 19:15 Normal Saline IV 12/17/20 20:09 999 mls/hr ONETIME ONE Administration - Re-Assessments/Exams Free Text/Narrative Re-Assessment/Exam: 12/17/20 20:[address] Ayala. I have examined the patient. The patient's CBC is remarkable for leukocytosis of 10.89, but with 0% bandemia. Her H/H is elevated at 17.9/55.7, with the remainder of her CBC being unremarkable. Her CMP is remarkable for hypernatremia of 156. Her anion gap is mildly elevated at 17.6, but with a bicarbonate normal at 31. Her BUN/Cr are elevated at 77/2.0. Her total serum calcium is substantially elevated at 16.1, with an albumin mildly depressed at 2.9 - calcium corrects to 17.0. Her TBil is slightly elevated at 1.1. Her AST/ALT are elevated at 230/112, respectively, with an alkaline phosphatase elevated at 240. The remainder of her CMP is unremarkable. Her lactic acid level is elevated at 2.6. Her INR is mildly elevated at 1.20, with a PT elevated at 12.8. Her EtOH level is 0.00. Her urinalysis is unremarkable. Her urine drug screen is completely negative. Her swab for the SARS-CoV-2 virus returned negative. Review of prior labs finds that the patient's BUN/Cr were within normal limits at 16/1.0 on 07/04/2020. Her total serum calcium at that time was normal at 9.2. Her AST at that time was slightly elevated at 47 with an ALT normal at 46, and her alkaline phosphatase at that time it was 108. Based on the above, the patient appears to be both intravascularly depleted (elevated H/H and BUN/Cr) and dehydrated (hypernatremia). She already received 1 L of LR and 1 L of NS prior to my taking over the case. I have ordered a third L of IV fluid - NS - to be given at 250 ml/hr. I have ordered a serum magnesium level and a troponin level. I attempted to add a serum calcium ion level, however, I was informed by lab that that test is a send-out test. Similarly, a PTH level is a send-out test. Because the patient is confused, she qualifies for treatment with calcitonin. I have ordered 4 units/kg = 180 units SQ. 12/17/20 20:49 The patient's magnesium level is slightly elevated at 2.5. Her troponin is undetectably low. 12/17/20 21:24 Case discussed with Jj at [facility] Call at 21:02. Case then discussed with Dr. Peña, Hospitalist at [facility], and Dr. Baugh, Culturist at [facility], at 21:13. Dr. Baugh agreed with our management thus far, and recommended only that we add a CPK to our current work-up. Dr. Peña accepted the patient for transfer to their facility. The patient will be transported by ground ambulance. 12/17/20 22:32 The patient has left the ED. Her CPK returned mildly elevated at 462. Her reflex lactic acid is up to 3.4. Departure - Departure Time of Disposition: 21:27 Condition: Fair - Discharge Information *PRESCRIPTION DRUG MONITORING PROGRAM REVIEWED*: Not Applicable *COPY OF PRESCRIPTION DRUG MONITORING REPORT IN PATIENT EBONIE: Not Applicable Sepsis Event Note (ED) - Focused Exam Vital Signs: Vital Signs Temp Pulse Resp BP Pulse Ox 12/17/20 17:33 35.9 C L 112 H 22 H 106/89 93 L - My Orders Last 24 Hours: My Active Orders 12/17/20 20:30 Sodium Chloride 0.9% [Normal Saline] 1,000 ml IV ASDIRECTED - Assessment/Plan Last 24 Hours: My Active Orders 12/17/20 20:30 Sodium Chloride 0.9% [Normal Saline] 1,000 ml IV ASDIRECTED
[2020-12-17] MEDS ORDERED: Lactated Ringers 1,000 ML IV SCH (18:45)
[2020-12-17] MEDS ORDERED: Sodium Chloride 0.9% 1,000 ML IV ONE ×2 (19:09→20:22)
[2020-12-17] MEDS ORDERED: Calcitonin (Salmon) 200 Units/ML 2 ML MDV SUBCUT STA (20:28)
[2020-12-17] MEDS ORDERED: Sodium Chloride 0.9% 1,000 ML IV SCH (20:30)
== END 2020-12-17 22:24 ==
LOC: JD.ED 17:18
DX: E87.0 Hyperosmolality and hypernatremia (principal); E83.52 Hypercalcemia; E86.9 Volume depletion, unspecified; N28.9 Disorder of kidney and ureter, unspecified; K75.9 Inflammatory liver disease, unspecified; R56.9 Unspecified convulsions; Z79.899 Other long term (current) drug therapy; Z20.822 Contact with and (suspected) exposure to COVID-19
CPT/HCPCS: 36415; 80053; 80179; 80306; 81001; 82550; 83605; 83735; 84484; 85007; 85027; 85610; 87040; 96372; 99285; J0630; J7030; J7120; U0002